=== PATIENT | female | born 1935 | race Caucasian/White ===

== ENCOUNTER 2020-12-03 09:28 | Inpatient (IN) | payer MEDICARE ==
[~2020-12-03] VITALS: Ht 157.5 cm; Wt 60.4 kg
[~2020-12-03 09:28] MED LIST: ALPR0.25 PO; AMIO200T6 PO; APIX2.5T PO; FURO40TA4 PO; Hydrocodone/Acetaminophen PO; LISI-517 PO; LISI10TA16 PO; METO50TA6 PO; MULT-245 PO
--- NOTE | 2020-12-03 09:45 | PHYS DOC ---
Past Medical History Past Medical History: A-Fib Past Surgical History: No Surgical History Additional Past Surgical Histo: PER PT SHE HAD "ABDOMINAL SURGERY LONG TIME AGO" Smoking Status: Never Smoker Alcohol Use: None Drug Use: None General Adult HPI: HPI: Patient is a 84-year-old female presenting for nausea. Onset was approximately 3 days ago without any known inciting event, ingestion, recent sick contact or travel. Patient initially reports taking Pepto-Bismol for stomach cramping and diarrhea which she reports helped. P.o. intake makes worse. Patient denies any pain, just states she feels tired and at times lightheaded and dizzy. Timing of symptoms has been constant since onset. She has had no falls or trauma but does admit generalized weakness, lightheadedness and dizziness with changes of position, no vision changes, no chest pain, no ripping or tearing sensation in chest, no shortness of breath or cough, she reports generalized abdominal cramping that is waxed and waned accompanied with nausea, there has been no emesis, admits looser stools than usual. She has not had the COVID-19 vaccine. Reports she has been compliant with all medications most importantly Eliquis for her known atrial fibrillation. She took all medications today as scheduled. Per chart review, it appears patient also has heart failure reduced ejection fraction with EF 30% per JEAN MARIE with subsequent cardioversion performed 09/2019 Review of Systems: Review of Systems: Fourteen body systems of review of systems have been reviewed. See HPI for pertinent positives and negative responses, other engle all other systems are negative, non-pertinent or non-contributory Heart Score: C/O Chest Pain: No HEART Score for Chest Pain: HEART Score for Chest Pain Response (Comments) Value History Moderately Suspicious 1 ECG Nonspecific Repolarizatio 1 Age > 65 2 Risk Factors >3 Risk Factors or Hx CAD 2 Total 6 Risk Factors: Risk Factors: DM, Current or recent (<one month) smoker, HTN, HLP, family history of CAD, obesity. Risk Scores: Score 0 - 3: 2.5% MACE over next 6 weeks - Discharge Home Score 4 - 6: 20.3% MACE over next 6 weeks - Admit for Clinical Observation Score 7 - 10: 72.7% MACE over next 6 weeks - Early Invasive Strategies Current Medications: Current Medications Medications (Trade) Dose Ordered Sig/Isac Start Time Stop Time Status Last Admin Dose Admin Metoprolol Tartrate (Lopressor Vial) 5 mg 1X ONCE 12/03/20 10:30 12/03/20 10:31 DC Allergies: Allergies: Allergies Coded Allergies Type Severity Reaction Last Updated Verified I S O L A T I O N *CONTACT* Allergy Unknown 03/02/15 Yes No Known Medication Allergies Allergy Unknown 03/02/15 Yes Physical Exam: PE: Constitutional: Well developed, well nourished, no acute distress, non-toxic appearance. HENT: Normocephalic, atraumatic, bilateral external ears normal, oropharynx dry, no oral exudates, nose normal. Eyes: PERRLA, EOMI, conjunctiva normal, no discharge. Neck: Normal range of motion, no tenderness, supple, no stridor. Cardiovascular: Heart rate tachycardic with an irregular rhythm, no murmurs rubs or gallops Lungs & Thorax: Bilateral breath sounds clear to auscultation Abdomen: Bowel sounds normal, soft, no tenderness, no masses, no pulsatile masses. Nonsurgical abdomen, no peritoneal signs Skin: Warm, dry, no erythema, no rash. Back: No tenderness, no CVA tenderness. Extremities: No tenderness, no cyanosis, no clubbing, ROM intact, no edema. Neurologic: Alert and oriented X 3, cranial nerves II through XII intact, normal motor & sensory function, no focal deficits noted. NIHSS 0 Psychologic: Affect normal, judgement normal, mood normal. Current Patient Data: Labs: Laboratory Tests Test 12/03/20 09:55 12/03/20 10:15 White Blood Count 5.0 x10^3/uL Red Blood Count 3.74 x10^6/uL Hemoglobin 12.0 g/dL Hematocrit 35.7 % Mean Corpuscular Volume 95 fL Mean Corpuscular Hemoglobin 32 pg Mean Corpuscular Hemoglobin Concent 34 g/dL Red Cell Distribution Width 14.6 % Platelet Count 187 x10^3/uL Neutrophils (%) (Auto) 58 % Lymphocytes (%) (Auto) 34 % Monocytes (%) (Auto) 5 % Eosinophils (%) (Auto) 1 % Basophils (%) (Auto) 1 % Neutrophils # (Auto) 2.9 x10^3/uL Lymphocytes # (Auto) 1.7 x10^3/uL Monocytes # (Auto) 0.2 x10^3/uL Eosinophils # (Auto) 0.1 x10^3/uL Basophils # (Auto) 0.1 x10^3/uL Sodium Level 141 mmol/L Potassium Level 4.4 mmol/L Chloride Level 104 mmol/L Carbon Dioxide Level 26 mmol/L Anion Gap 11 Blood Urea Nitrogen 16 mg/dL Creatinine 1.0 mg/dL Estimated GFR (Cockcroft-Gault) 53.0 BUN/Creatinine Ratio 16 Glucose Level 95 mg/dL Calcium Level 9.2 mg/dL Total Bilirubin 0.4 mg/dL Aspartate Amino Transf (AST/SGOT) 18 U/L Alanine Aminotransferase (ALT/SGPT) 18 U/L Alkaline Phosphatase 71 U/L Creatine Kinase 28 U/L Troponin I Quantitative 0.031 ng/mL Total Protein 6.6 g/dL Albumin 3.5 g/dL Albumin/Globulin Ratio 1.1 Lipase 83 U/L Current Medications Medications (Trade) Dose Ordered Sig/Isac Route PRN Reason Start Time Stop Time Status Last Admin Dose Admin Metoprolol Tartrate (Lopressor Vial) 5 mg 1X ONCE IVP 12/03/20 10:00 12/03/20 10:01 DC 12/03/20 10:07 Metoprolol Tartrate (Lopressor Vial) 5 mg 1X ONCE IVP 12/03/20 10:30 12/03/20 10:31 DC Vital Signs: Vital Signs Date Time Temp Pulse Resp B/P (MAP) Pulse Ox O2 Delivery O2 Flow Rate FiO2 12/03/20 09:36 133 26 133/97 (109) 99 Room Air Vital Signs Date Time Temp Pulse Resp B/P (MAP) Pulse Ox O2 Delivery O2 Flow Rate FiO2 12/03/20 10:14 117 17 124/77 (93) 99 Room Air EKG: EKG: EKG ordered and interpreted by myself at 0950 hrs. is atrial fibrillation with RVR at 133, QTC 484 otherwise unremarkable intervals, left axis deviation, no STEMI Radiology/Procedures: Radiology/Procedures: EXAM: XR CHEST 1V 12/03/2020 10:10 AM CLINICAL INDICATION: Weakness COMPARISON: Chest radiograph 10/13/2019 TECHNIQUE: AP upright view of the chest FINDINGS: The heart is enlarged, unchanged. Lungs are well-expanded and clear. No consolidation, pleural effusion, or pneumothorax. There is no acute osseous abnormality. Mild scoliosis. IMPRESSION: Unchanged cardiomegaly. No acute cardiopulmonary abnormality. Electronically signed by: Tatianna Rayo MD (12/03/2020 10:38 AM) [id number] Course & Med Decision Making: Course & Med Decision Making Airway patent, breathing unremarkable, IV access and vitals obtained concerning for tachycardia and tachypnea HPI and physical exam and EKG obtained concerning for atrial fibrillation with RVR. Patient takes metoprolol at home and reports taking all medications today. 5 mg IV Lopressor administered Subsequent diagnostic work-up ordered that was grossly nonconcerning. Chart reviewed, appears patient has heart failure reduced ejection fraction with last EF 30% in September 2019. She was admitted at that time for similar HPI and underwent JEAN MARIE cardioversion Patient symptoms improved with ER intervention; however, patient still not optimally rate controlled and decision made to pursue admission. I contacted hospitalist and reviewed case at length, he agreed need for admission and accepted patient under his care I contacted physician office rep at hospitalist request and reviewed case, it was recommended I load with digoxin 500 mcg IV which was performed prior to admission to [facility] I updated patient and spouse at bedside on proposed hospital admission, they were amenable. Patient confirms she is full CODE STATUS prior to admission Critical Care Time This patient required critical care. Due to the fact that the patient required a significant amount of one on one physician - patient contact time, ordering and review of studies, arranging urgent treatment with development of a management plan, evaluation of patients response to treatment with frequent reassessments, and discussions with other providers this patient required 35 minutes of critical care time. Critical care time was indicated due to the inherent instability and/or potential for instability in this patient. The critical care time that is allocated to this patient is above and beyond any time spent on any other billable procedures performed on this patient. Dragon Disclaimer: Dragon Disclaimer: This electronic medical record was generated, in whole or in part, using a voice recognition dictation system. Departure Departure Impression: Primary Impression: Atrial fibrillation with RVR Disposition: ADMITTED INPATIENT Admitting Physician: Shahab Brar Condition: STABLE Referrals: ÁNGELA BANKS (PCP) BALWINDER VALLEJO DO Dec 03, 2020 09:45
[2020-12-03] MEDS ORDERED: METOPROLOL IV PUSH 5 MG/5 ML VIAL. IVP ONE ×2 (10:00→10:30)
[2020-12-03 10:16] LABS: BASO # 0.1 x10^3/uL (0.0-0.2); BASO % 1 % (0-3); EOS # 0.1 x10^3/uL (0.0-0.7); EOS % 1 % (0-3); HEMATOCRIT 35.7 % (36.0-47.0); LYMPH # 1.7 x10^3/uL (1.0-4.8); LYMPH % 34 % (24-48); MEAN CORPUSCULAR HEMOGLOBIN 32 pg (25-35); MEAN CORPUSCULAR HGB CONC 34 g/dL (31-37); MEAN CORPUSCULAR VOLUME 95 fL (79-100); MONO # 0.2 x10^3/uL (0.0-1.1); MONO % 5 % (0-9); NEUT # 2.9 x10^3/uL (1.8-7.7); NEUT % 58 % (31-73); PLATELET COUNT 187 x10^3/uL (140-400); RED BLOOD COUNT 3.74 x10^6/uL (3.50-5.40); RED CELL DISTRIBUTION WIDTH 14.6 % (11.5-14.5)
--- NOTE | 2020-12-03 10:30 | EKG ---
[facility] [address] [place] [address] Test Date: 2020-12-03 Test Time: 09:44:25 Pat Name: PARMINDER METZ Department: Room: Gender: F Post Doc Fellowship: : [id number] Requested By: BALWINDER VALLEJO Order Number: [id number] Reading MD: Dillan Carballo MD Measurements Intervals Branscomb Rate: 133 P: KS: QRS: -35 QRSD: 114 T: 55 QT: 324 QTc: 484 Interpretive Statements ATRIAL FIB./FLUTTER WITH RAPID VENTRICULAR RESPONSE LAD NON-SPECIFIC ST/T CHANGES Electronically Signed On 12-03-2020 20:27:52 CDT by Dillan Carballo MD
[2020-12-03 10:38] LABS: CALCIUM 9.2 mg/dL (8.5-10.1); POTASSIUM 4.4 mmol/L (3.5-5.1)
--- NOTE | 2020-12-03 10:40 | RAD ---
EXAM: XR CHEST 1V 12/03/2020 10:10 AM CLINICAL INDICATION: Weakness COMPARISON: Chest radiograph 10/13/2019 TECHNIQUE: AP upright view of the chest FINDINGS: The heart is enlarged, unchanged. Lungs are well-expanded and clear. No consolidation, ple ural effusion, or pneumothorax. There is no acute osseous abnormality. Mild scoliosis. IMPRESSION: Unchanged cardiomegaly. No acute cardiopulmonary abnormality. Electronically signed by: Tatianna Rayo MD (12/03/2020 10:38 AM) [id number]
[2020-12-03 10:44] LABS: ALBUMIN 3.5 g/dL (3.4-5.0); ALBUMIN/GLOBULIN RATIO 1.1 (1.0-1.7); TOTAL BILIRUBIN 0.4 mg/dL (0.2-1.0); TOTAL PROTEIN 6.6 g/dL (6.4-8.2)
[2020-12-03] MEDS ORDERED: ASPIRIN CHEWABLE 81 MG TABLET. PO ONE (11:00)
[2020-12-03] MEDS ORDERED: ACETAMINOPHEN 325 MG TABLET. PO PRN (11:15)
[2020-12-03] MEDS ORDERED: NITROGLYCERIN SUBLINGUAL 0.4 MG BOTTLE OF 25. SL PRN (11:15)
[2020-12-03] MEDS ORDERED: DIGOXIN IV 500 MCG/2 ML AMPUL. IV ONE (11:30)
[2020-12-03 14:05] VITALS: BP 131/92
[2020-12-03 19:37] VITALS: BP 126/71
--- NOTE | 2020-12-03 20:31 | PDOC2 ---
CARDIOLOGY CONSULT NOTE DATE OF SERVICE: DATE: 12/03/20 TIME: 20:28 CHIEF COMPLAINT: Nausea and fatigue HPI: Ms. Franklin is a 84-year-old woman who presented to the hospital in the setting of worsening nausea and fatigue over the last few days. She states she was in her usual state of health up until recently. She denies any chest pain. She has no syncope or palpitations. She reports compliance with her medications. She underwent a JEAN MARIE/cardioversion for cardiomyopathy and difficult to control atrial fibrillation approximately 1 year ago. She had a similar episode approximately 2 years ago. She was previously on amiodarone therapy. She has not had follow-up in the office for over a year. Currently she reports that she is feeling better. She is lying in her bed and not in any acute distress. She has had a poor appetite. PMHX: 1. 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 Paroxysmal atrial fibrillation with previous cardioversion 3. Hypertension SOCHX: Denies any alcohol, tobacco or illicit drug use. She lives at home with her FAMHX: Noncontributory CURRENT MEDS: Current Medications Medications (Trade) Dose Ordered Sig/Isac Route PRN Reason Start Time Stop Time Status Last Admin Dose Admin Metoprolol Tartrate (Lopressor Vial) 5 mg 1X ONCE IVP 12/03/20 10:00 12/03/20 10:01 DC 12/03/20 10:07 Aspirin (Aspirin Chewable) 324 mg 1X ONCE PO 12/03/20 11:00 12/03/20 11:01 DC 12/03/20 11:12 Digoxin (Lanoxin) 500 mcg 1X ONCE IV 12/03/20 11:30 12/03/20 11:31 DC 12/03/20 11:54 ALLERGIES: Allergies Coded Allergies Type Severity Reaction Last Updated Verified I S O L A T I O N *CONTACT* Allergy Unknown 03/02/15 Yes No Known Medication Allergies Allergy Unknown 03/02/15 Yes ROS: Negative for 10 out of 14 systems reviewed unless otherwise mentioned above in HPI PHYSICAL EXAM: Vital Signs/I&O: Vital Signs Date Time Temp Pulse Resp B/P (MAP) Pulse Ox O2 Delivery O2 Flow Rate FiO2 12/03/20 19:37 97.8 70 16 126/71 (89) 98 Room Air 97.8 Physical Exam: The patient appeared well nourished and normally developed. Head exam is unremarkable. No scleral icterus or corneal arcus noted. Neck is without jugular venous distension, thyromegaly, or carotid bruits. Carotid upstrokes are brisk bilaterally. Lungs are clear to auscultation and percussion. Cardiac exam reveals the PMI to be normally sized and situated. Rhythm is irregular. First and second heart sounds normal. No murmurs, rubs or gallops. Abdominal exam reveals normal bowel sounds, no masses, no organomegaly and no aortic enlargement. Extremities are nonedematous and both femoral and pedal pulses are normal. Msk: No traumua Neuro: No focal deficits DIAGNOSTIC TESTING: EKG demonstrates atrial fibrillation with a rapid ventricular response Telemetry is notable for better control heart rate about 84 but persistently in atrial fibrillation Labs are grossly unremarkable Chest x-ray is unremarkable ASSESSMENT: 1. Fatigue likely related to atrial fibrillation and rapid ventricular response 2. Hypertension 3. Cardiomyopathy PLAN: 1. We will plan for continued rate control at this time. 2. Check echocardiogram tomorrow and continue anticoagulation for now. 3. We will consider JEAN MARIE/cardioversion again but it is unclear how long the patient has been in atrial fibrillation. Review of [facility] records reveals that the patient has not followed up there in over 2 years. She has not been seen in our office for over 1 year. Continue rate control and we will consider cardioversion after discussion with her depending on how she feels with her rate being more controlled. MOSES THAKKAR MD Dec 03, 2020 20:31
[2020-12-03] MEDS: APIXABAN 2.5 MG TABLET. PO SCH (20:44)
[2020-12-03] MEDS: METOPROLOL TART IMMED RELEASE 50 MG TABLET. PO SCH (20:44)
[2020-12-03 22:43] VITALS: BP 152/75
[2020-12-04 02:56] VITALS: BP 150/78
--- NOTE | 2020-12-04 06:59 | NUR ---
IP: Pt's hx of vre was in 2014. No reoccurrence and flag has been removed. No isolation needed at this time.
[2020-12-04 07:00] VITALS: BP 141/83
[2020-12-04 07:21] LABS: BASO % 1 % (0-3); EOS # 0.1 x10^3/uL (0.0-0.7); EOS % 3 % (0-3); HEMATOCRIT 37.6 % (36.0-47.0); HEMOGLOBIN 12.4 g/dL (12.0-15.5); LYMPH # 1.2 x10^3/uL (1.0-4.8); LYMPH % 36 % (24-48); MEAN CORPUSCULAR HEMOGLOBIN 32 pg (25-35); MEAN CORPUSCULAR HGB CONC 33 g/dL (31-37); MEAN CORPUSCULAR VOLUME 96 fL (79-100); MONO # 0.2 x10^3/uL (0.0-1.1); MONO % 7 % (0-9); NEUT # 1.8 x10^3/uL (1.8-7.7); NEUT % 53 % (31-73); PLATELET COUNT 171 x10^3/uL (140-400); RED BLOOD COUNT 3.93 x10^6/uL (3.50-5.40); RED CELL DISTRIBUTION WIDTH 13.9 % (11.5-14.5); WHITE BLOOD COUNT 3.4 x10^3/uL (4.0-11.0)
[2020-12-04] MEDS: ACETAMINOPHEN 325 MG TABLET. PO PRN ×2 (07:31→13:36)
[2020-12-04] MEDS: APIXABAN 2.5 MG TABLET. PO SCH ×2 (07:32→20:47)
[2020-12-04] MEDS: METOPROLOL TART IMMED RELEASE 50 MG TABLET. PO SCH ×2 (07:32→20:47)
[2020-12-04 07:43] LABS: ALBUMIN 3.2 g/dL (3.4-5.0); ALBUMIN/GLOBULIN RATIO 0.9 (1.0-1.7); CALCIUM 8.9 mg/dL (8.5-10.1); CREATININE 0.9 mg/dL (0.6-1.0); GFR 59.8; MAGNESIUM 2.2 mg/dL (1.8-2.4); POTASSIUM 4.2 mmol/L (3.5-5.1); TOTAL BILIRUBIN 0.4 mg/dL (0.2-1.0); TOTAL PROTEIN 6.8 g/dL (6.4-8.2)
--- NOTE | 2020-12-04 08:50 | HP ---
ADMIT DATE: 12/03/2020 HISTORY OF PRESENT ILLNESS: The patient is an 84-year-old female patient who presented to the Emergency Room, complaining of nausea started about 3 days ago without any known inciting event, ingestion or recent sick contact or travel. She has been taking Pepto-Bismol for stomach cramping and diarrhea, which she reports that has helped, her p.o. intake make things worse. Denied any pain. She Just states that she feels tired and at times lightheaded and dizzy. Time of the symptom has been constant since onset. She has had no falls or trauma, but does admit to generalized weakness, lightheadedness and dizziness and change in position, no vision changes or chest pain. Did have some shortness of breath according to her. She is taking her medication as scheduled. Currently, she is known to have congestive heart failure with reduced ejection fraction of 30% per JEAN MARIE with subsequent cardioversion performed in 09/2019. She was evaluated in the Emergency Room and has had an EKG which showed that she was in atrial fibrillation with rapid ventricular response with a heart rate of 133 beats per minute. QT interval of 484, otherwise unremarkable intervals, left axis deviation, no STEMI. Her chest x-ray showed that the heart is enlarged and unchanged. Lungs are well expanded and clear. No consolidation, pleural effusion, or pneumothorax. There is no acute osseous abnormality and mild scoliosis. The patient was admitted with atrial fibrillation with rapid ventricular response. She was given IV metoprolol and digoxin and was admitted and continued on metoprolol as well as apixaban. PAST MEDICAL HISTORY: Significant for hypertension, atrial fibrillation and chronic systolic congestive heart failure. PAST SURGICAL HISTORY: Significant for hernia repair. ALLERGIES: No known drug allergies. FAMILY HISTORY: Unremarkable. SOCIAL HISTORY: She is and lives with her . She does not smoke, drink alcohol or recreational drugs. She has 2 sons and 1 daughter. ALLERGIES: She has no known drug allergies. MEDICATIONS: She is currently on the following medication: She is on apixaban 2.5 mg twice a day and metoprolol tartrate 50 mg twice a day. PHYSICAL EXAMINATION: GENERAL: On arrival to the Emergency Room, the patient was dyspneic, tachycardic. HEENT: There is no pallor, jaundice, cyanosis, or thyromegaly. No jugular venous distention. Mild bilateral lower limb edema. VITAL SIGNS: Her heart rate on arrival was 133, irregularly irregular, blood pressure is 133/97, temperature was 97.5, respiratory rate was 26 and oxygen saturation was 99%. HEAD, EYES, EARS, NOSE, AND THROAT: Normocephalic, atraumatic. NECK: Supple. HEART: Showed normal first and second heart sounds, no gallop, rub or murmur. CHEST: Shows central trachea, equal bilateral chest expansion, air entry, vesicular breath sounds. No crepitation or rhonchi. ABDOMEN: Scaphoid, soft, nontender. NEUROLOGIC: She is awake, alert, responding appropriately. All cranial nerves are intact. She moves extremities without difficulty. LABORATORY DATA: Her lab work showed a white cell count 5000, hemoglobin 12, hematocrit 36, MCV 95 and platelet count of 187,000. Her chemistry showed a serum sodium of 141, potassium 4.4, chloride 104, bicarbonate 26, anion gap of 11, BUN 16, creatinine 1, estimated GFR was 53 mL per minute. Her glucose was 95, calcium was 9.2. Total bilirubin, AST, ALT, alkaline phosphatase were normal. Total protein 6.6, albumin was 3.5, serum lipase was 83. ASSESSMENT AND PLAN: Apparently, the patient was treated with digoxin and metoprolol IV twice in the Emergency Room, was admitted and continued on her apixaban and metoprolol. The cardiology team was consulted for further evaluation and treatment. REJI DR: Woo TID: [id number]
--- NOTE | 2020-12-04 09:27 | PN ---
DATE: 12/04/2020 SUBJECTIVE: The patient is resting, slightly propped up in bed, in no apparent respiratory distress. She is awake, alert. On questioning her, she denied any complaint, in particular denied any nausea or vomiting. Denied any dizziness, lightheadedness or vertigo. She did have one loose bowel movement this morning. PHYSICAL EXAMINATION: GENERAL: When I examined her, she looked well and was clearly in no apparent respiratory distress. No pallor, jaundice, cyanosis, or thyromegaly. No jugular venous distention. No lower limb edema. VITAL SIGNS: Her heart rate was 95, blood pressure was 150/78, temperature was 97.6, respiratory rate was 16 and oxygen saturation was 97% on room air. HEAD, EYES, EARS, NOSE, AND THROAT: Normocephalic, atraumatic. NECK: Supple. HEART: Normal first and second heart sounds. No gallop, rub or murmur. CHEST: Clear to auscultation. No crepitation or rhonchi. ABDOMEN: Distended, soft, nontender. NEUROLOGIC: She was grossly intact. Her intake over the last 24 hours and output incompletely recorded. LABORATORY DATA: Her lab work this morning showed a white cell count 3400, hemoglobin 12, hematocrit 37, MCV 96 and platelet count of 171,000. Serum sodium was 142, potassium 4.2, chloride 106, bicarbonate 29, anion gap of 7, BUN 14, creatinine 0.9. Estimated GFR was 59 mL per minute. Her glucose was 89, calcium was 8.9, magnesium was 2.2. Total bilirubin, AST, ALT, alkaline phosphatase were normal. Total protein 6.8, albumin 3.2. 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 JUAN C DR: Woo TID: [id number]
[2020-12-04] MEDS ORDERED: ANTI-COAG MONITOR BY PHARMACY. MC PRN (09:45)
[2020-12-04 11:00] VITALS: BP 113/76
[2020-12-04] MEDS: ONDANSETRON PF 4 MG/2 ML VIAL. IVP PRN (13:01)
--- NOTE | 2020-12-04 13:11 | PDOC ---
BILLY STEVEN [employer] 12/04/20 1311: CARDIO Progress Notes Date and Time Date of Service 12/04/20 Time of Evaluation 1300 Subjective Subjective: No Chest Pain, No shortness of breath, No Palpitations, Other (c/o nausea and abdominal pain) Vitals Vitals Vital Signs Date Time Temp Pulse Resp B/P (MAP) Pulse Ox O2 Delivery O2 Flow Rate FiO2 12/04/20 11:00 97.4 74 18 113/76 (88) 97 Room Air 97.4 Weight Weight [ ] Input and Output Intake and Output Intake and Output 12/04/20 07:00 Intake Total 480 ml Output Total 0 ml Balance 480 ml Intake Oral 480 ml Output Urine Total 0 ml Laboratory Labs Laboratory Tests Test 12/04/20 06:50 White Blood Count 3.4 x10^3/uL (4.0-11.0) Red Blood Count 3.93 x10^6/uL (3.50-5.40) Hemoglobin 12.4 g/dL (12.0-15.5) Hematocrit 37.6 % (36.0-47.0) Mean Corpuscular Volume 96 fL (79-100) Mean Corpuscular Hemoglobin 32 pg (25-35) Mean Corpuscular Hemoglobin Concent 33 g/dL (31-37) Red Cell Distribution Width 13.9 % (11.5-14.5) Platelet Count 171 x10^3/uL (140-400) Neutrophils (%) (Auto) 53 % (31-73) Lymphocytes (%) (Auto) 36 % (24-48) Monocytes (%) (Auto) 7 % (0-9) Eosinophils (%) (Auto) 3 % (0-3) Basophils (%) (Auto) 1 % (0-3) Neutrophils # (Auto) 1.8 x10^3/uL (1.8-7.7) Lymphocytes # (Auto) 1.2 x10^3/uL (1.0-4.8) Monocytes # (Auto) 0.2 x10^3/uL (0.0-1.1) Eosinophils # (Auto) 0.1 x10^3/uL (0.0-0.7) Basophils # (Auto) 0.0 x10^3/uL (0.0-0.2) Sodium Level 142 mmol/L (136-145) Potassium Level 4.2 mmol/L (3.5-5.1) Chloride Level 106 mmol/L (98-107) Carbon Dioxide Level 29 mmol/L (21-32) Anion Gap 7 (6-14) Blood Urea Nitrogen 14 mg/dL (7-20) Creatinine 0.9 mg/dL (0.6-1.0) Estimated GFR (Cockcroft-Gault) 59.8 BUN/Creatinine Ratio 16 (6-20) Glucose Level 89 mg/dL (70-99) Calcium Level 8.9 mg/dL (8.5-10.1) Magnesium Level 2.2 mg/dL (1.8-2.4) Total Bilirubin 0.4 mg/dL (0.2-1.0) Aspartate Amino Transf (AST/SGOT) 16 U/L (15-37) Alanine Aminotransferase (ALT/SGPT) 13 U/L (14-59) Alkaline Phosphatase 66 U/L (46-116) Total Protein 6.8 g/dL (6.4-8.2) Albumin 3.2 g/dL (3.4-5.0) Albumin/Globulin Ratio 0.9 (1.0-1.7) Physical Exam HEENT: Neck Supple W Full Motion Chest: Symmetric LUNGS: Clear to Auscultation Heart: irregularly irregular (AFIB, rate controlled ) Abdomen: Other (mild tenderness) Extremities: No Edema Neurology: alert, oriented, follow commands Assessment Assessment 1. PAFIB with RVR; remains in AFIB, rate now controlled. Fatigue, palpitations resolved. 2. Hypertension; controlled 3. Chronic systolic CHF, cardiomyopathy; Echo 08/16 with LVEF 25%. MPI at that time did not show any evidence of ischemia. Echo 10/18 with LVEF 30%. 4. Nausea, abdominal pain; CT abdomen/pelvis today Recommendations Echo today Continue metoprolol for rate control Eliquis for stroke prophylaxis Consider resumption of antiarrhythmic therapy and outpatient cardioversion Justicifation of Admission Dx: Justifications for Admission: Justification of Admission Dx: Yes Comments: AFIB with RVR MOSES THAKKAR MD 12/04/20 8176: CARDIO Progress Notes Plan Plan The patient was seen and interviewed as well as examined at the bedside. The chart was reviewed. The case was discussed. Agree with the plan of care. BILLY STEVEN APRN Dec 04, 2020 13:11 MOSES THAKKAR MD Dec 04, 2020 18:06
[2020-12-04] MEDS: LOPERAMIDE 2 MG CAPSULE PO PRN ×2 (13:45→15:18)
--- NOTE | 2020-12-04 14:43 | NUR ---
SS following for discharge planning. SS reviewed pt chart and discussed with pt RN. Pt is from home with spouse and is currently on room air. Cardiology following. Pt having diarrhea today. Abdominal CT ordered. SS will continue to follow for discharge planning.
[2020-12-04 15:00] VITALS: BP 128/79
--- NOTE | 2020-12-04 17:02 | RAD ---
Axial noncontrast CT imaging of the abdomen and pelvis was obtained. Coronal and sagittal reformats a re available. INDICATION: Abdominal pain. COMPARISON: 10/17/2019. FINDINGS: The heart is enlarged. There is a large hiatal hernia identified. There is also a fat filled [place] k hernia in the right lung base. Limited evaluation of solid organs without intravenous contrast. Gallbladder is contracted. The nonco ntrasted liver, spleen, adrenals are unremarkable in appearance. Pancreas is grossly unremarkable non contrast examination. Partial herniation of the right kidney into the Boch[place] hernia. No hydronephr osis or hydroureter is identified. The stomach, small and large bowel are nondistended. There are multiple impacted diverticula seen thr oughout the colon. No free air-fluid. Abdominal aorta is densely calcified without aneurysmal dilatio n. There are degenerated calcified fibroids in the uterus. Urinary bladder is moderately distended. There is moderate degenerative change the bony structures. IMPRESSION: 1. Large hiatal hernia. 2. 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 3. Pancolonic diverticulosis without diverticulitis. Exposure: One or more of the following individualized dose reduction techniques were utilized for thi s examination: 1. Automated exposure control 2. Adjustment of the mA and/or kV according to patient size 3. Use of iterative reconstruction technique Electronically signed by: Wicho Webb MD (12/04/2020 5:00 PM) [facility]
--- NOTE | 2020-12-04 17:06 | CARD ---
MR#: [id number] Date of Study: 12/04/2020 Ordering Physician: BILLY STEVEN, Referring Physician: BILLY STEVEN, Tech: Vasu Acosta [facility] APPROVED REPORT EXAM: Two-dimensional and M-mode echocardiogram with Doppler and color Doppler. Other Information Quality : GoodHR: 96bpm Rhythm : Atrial Fibrillation INDICATION Atrial Fibrillation 2D DIMENSIONS Left Atrium(2D)4.5 (1.6-4.0cm)IVSd1.2 (0.7-1.1cm) Aortic Root(2D)3.2 (2.0-3.7cm)LVDd4.8 (3.9-5.9cm) LVOT Diameter1.8 (1.8-2.4cm)PWd1.2 (0.7-1.1cm) LVDs3.8 (2.5-4.0cm)FS (%) 19.9 % SV43.0 mlLVEF(%)40.8 (>50%) Aortic Valve AoV Peak Cristian.131.0cm/sAoV VTI21.5cm AO Peak GR.6.9mmHgLVOT Peak Cristian.62.4cm/s AO Mean GR.3mmHgAVA (VMAX)1.24cm2 AI P 1/2 [id number] Mitral Valve MV E Peak Gr.3mmHgMV E Mean Gr.2mmHg Pulmonary Valve PV Peak Hepbpgov70.7cm/s Tricuspid Valve TR P. [id number]/sTR Peak Gr.28mmHg LEFT VENTRICLE The left ventricle is normal size. There is borderline concentric left ventricular hypertrophy. The l eft ventricular systolic function is normal and the ejection fraction is within normal range. EF 55% There is normal LV segmental wall motion. Tissue Doppler imaging reveals moderate left ventricular di astolic dysfunction. RIGHT VENTRICLE The right ventricle is normal size. There is normal right ventricular wall thickness. The right ventr icular systolic function is normal. ATRIA The left atrium is severely dilated. The right atrium size is normal. Interatrial septum is anuerysma l and bowed to the right. AORTIC VALVE The aortic valve is normal in structure and function. Doppler and Color Flow revealed mild aortic reg urgitation. There is no significant aortic valvular stenosis. There is no aortic valvular vegetation. MITRAL VALVE The mitral valve is normal in structure and function. There is no evidence of mitral valve prolapse. There is no mitral valve stenosis. Doppler and Color-flow revealed mild mitral regurgitation. TRICUSPID VALVE The tricuspid valve is normal in structure and function. Doppler and Color Flow revealed trace to mil d tricuspid regurgitation. There is no tricuspid valve prolapse or vegetation. There is no tricuspid valve stenosis. PULMONIC VALVE Doppler and Color Flow revealed no pulmonic valvular regurgitation. There is no pulmonic valvular jaya nosis. GREAT VESSELS The aortic root is normal in size. The ascending aorta is normal in size. IVC is mildly dilated wiith blunted inspirational response. PERICARDIAL EFFUSION There is no pleural effusion. There is no evidence of significant pericardial effusion. Critical Notification Critical Value: No <Conclusion> The left ventricular systolic function is normal and the ejection fraction is within normal range. EF 55% There is normal LV segmental wall motion. The left atrium is severely dilated. 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 Signed by : Dillan Carballo, Electronically Approved : 12/04/2020 17:06:05
[2020-12-04 19:40] VITALS: BP 131/67
[2020-12-04 23:10] VITALS: BP 121/68
[2020-12-05] MEDS: LOPERAMIDE 2 MG CAPSULE PO PRN ×2 (00:25→07:40)
[2020-12-05] MEDS: ONDANSETRON PF 4 MG/2 ML VIAL. IVP PRN ×2 (00:25→07:39)
[2020-12-05 03:50] VITALS: BP 131/83
[2020-12-05 07:00] VITALS: BP 145/90
[2020-12-05] MEDS: APIXABAN 2.5 MG TABLET. PO SCH (07:39)
[2020-12-05] MEDS: METOPROLOL TART IMMED RELEASE 50 MG TABLET. PO SCH (07:42)
[2020-12-05] MEDS ORDERED: PANT40TA77 PO (08:19)
[2020-12-05] MEDS ORDERED: ONDA4TAB7 PO (08:19)
--- NOTE | 2020-12-05 09:42 | DS ---
DATE OF DISCHARGE: 12/05/2020 HOSPITAL COURSE: The patient is an 84-year-old female patient who was admitted with a complaint of generalized weakness. Denied any nausea, vomiting. Denied any dizziness or lightheadedness or vertigo. Did complain of some abdominal cramping and her heart rate remained stable. She was seen by the clinical team manager and had had an echocardiogram, which basically showed that her left ventricular systolic function is normal, ejection fraction was 55%. There is normal left ventricular segmental wall motion. Left atrium is severely dilated. 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 Her left ventricle is normal in size. There is borderline concentric left ventricular hypertrophy. The left ventricular systolic function is normal. Ejection fraction is 55% with normal left ventricular segmental wall motion. Tissue Doppler imaging revealed moderate left ventricular diastolic dysfunction. The patient was continued on her apixaban and metoprolol and as she remained stable, a decision was made to discharge her home. The plan is to continue with metoprolol for rate control, Eliquis for stroke prevention and apparently, she will be discharged for outpatient cardioversion. Her CT scan of the abdomen and pelvis showed that she has large hiatal hernia, fat filled Bochdalek hernia with a small herniation to the kidney into the hernia, which is stable. She has pancolonic diverticulosis without diverticulitis. PHYSICAL EXAMINATION: GENERAL: When I examined her this morning, she looked well and was clearly in no apparent respiratory distress. No pallor, jaundice, cyanosis or thyromegaly. No jugular venous distention. No lower limb edema. VITAL SIGNS: Her heart rate was 101, blood pressure was 145/90, temperature 97.7, respiratory rate was 18 and oxygen saturation was 97% on room air. HEAD, EYES, EARS, NOSE, AND THROAT: Normocephalic, atraumatic. NECK: Supple. HEART: Normal first and second heart sounds, no gallop, rub or murmur. CHEST: Clear to auscultation, no crepitation or rhonchi. ABDOMEN: Distended, soft, nontender. NEUROLOGIC: She is grossly intact. LABORATORY DATA: Her lab work showed a white cell count of 3400, hemoglobin 12, hematocrit 37, MCV 96 and platelet count of 171,000. Her chemistry showed a serum sodium 142, potassium 4.2, chloride 106, bicarbonate 29, anion gap of 7, BUN 14, creatinine 0.9. Estimated GFR was 59 mL per minute. Her glucose was 89, calcium was 8.9, magnesium was 2.2. Total bilirubin, AST, ALT, alkaline phosphatase were normal. Total protein 6.8, albumin 3.2. TSH was 3.665. DISCHARGE MEDICATIONS: She will be discharged on metoprolol 50 mg twice a day, apixaban 2.5 mg twice a day, Protonix 40 mg once a day and ondansetron for Zofran 4 mg every 6 hours. FINAL DISCHARGE DIAGNOSES: 1. Paroxysmal atrial fibrillation with rapid ventricular response, rate controlled. 2. Hypertension, well controlled. 3. Chronic systolic congestive heart failure, ejection fraction on 08/16 was 25%. Today's ejection fraction was 55%. The patient has large hiatal hernia. DAYANARA/IRVIN DR: Woo TID: [id number]
--- NOTE | 2020-12-05 10:35 | NUR ---
SS following up with discharge planning. SS reviewed pt chart and discussed with pt RN. Pt is currently on room air. Discharge order on the chart for home with self care.
[2020-12-05 11:02] VITALS: BP 146/85
--- NOTE | 2020-12-05 12:34 | PDOC ---
CARDIO Progress Notes Date and Time Date of Service 12/05/20 Time of Evaluation 1230 Subjective Subjective: No Chest Pain, No shortness of breath, No Palpitations Vitals Vitals Vital Signs Date Time Temp Pulse Resp B/P (MAP) Pulse Ox O2 Delivery O2 Flow Rate FiO2 12/05/20 11:02 98.1 69 16 146/85 (105) 95 Room Air 98.1 Weight Weight [ ] Input and Output Intake and Output Intake and Output 12/05/20 07:00 Intake Total 750 ml Balance 750 ml Intake Oral 750 ml # Voids 5 # Bowel Movements 3 Physical Exam HEENT: Neck Supple W Full Motion Chest: Symmetric LUNGS: Clear to Auscultation Heart: irregularly irregular (AFIB, rate controlled ) Abdomen: Soft N/T Extremities: No Edema Neurology: alert, oriented, follow commands Assessment Assessment 1. PAFIB with RVR; remains in AFIB, rate controlled. Fatigue, palpitations resolved. 2. Hypertension; controlled 3. Chronic systolic CHF, cardiomyopathy; Echo 08/16 with LVEF 25%. MPI at that time did not show any evidence of ischemia. .Echo with preserved LV systolic function. The left atrium is severely dilated. 4. Nausea, abdominal pain; CT abdomen/pelvis with hiatal hernia and diverticulosis without diverticulitis. Recommendations Continue metoprolol for rate control Eliquis for stroke prophylaxis Consider resumption of antiarrhythmic therapy and outpatient cardioversion Follow up in our office with Dr. Carballo as scheduled Discussed importance of followup compliance Justicifation of Admission Dx: Justifications for Admission: Justification of Admission Dx: Yes BILLY STEVEN APRN Dec 05, 2020 12:34
--- NOTE | 2020-12-05 12:58 | NUR ---
Discharge Note: PARMINDER METZ Discharge instructions and discharge home medications reviewed with Patient and a copy given. All questions have been answered and understanding verbalized. The following instructions and handouts were given: Zofran, Protonix, Nausea, and abdominal pain Discontinued lines and drains: Peripheral IV intact. Patient discharged to Home or Self Care with Spouse via Wheelchair
== END 2020-12-05 12:50 | disposition home or self-care (01) | DRG 309 ==
LOC: ER 09:28 → 2 SOUTH 10:57
PROVIDERS: ADMIT Internal Medicine; ATTEND Internal Medicine
DX: I48.0 Paroxysmal atrial fibrillation (principal); I50.22 Chronic systolic (congestive) heart failure; I11.0 Hypertensive heart disease with heart failure; I42.8 Other cardiomyopathies; K44.9 Diaphragmatic hernia without obstruction or gangrene; K57.30 Diverticulosis of large intestine without perforation or abscess without bleeding; Z79.01 Long term (current) use of anticoagulants
CPT/HCPCS: 36415; 71045; 74176; 80053; 82550; 83690; 83735; 84443; 84484; 85025; 87493; 93005; 93306; 96374; 96375; J1160; J2405; J3490; 99291-25; G0378

== ENCOUNTER 2021-01-04 01:43 | Emergency (ER) | payer MEDICARE ==
[2020-12-25 10:50] VITALS: BP 110/74
[~2021-01-04 01:43] MED LIST changes: +CEPH500C PO; +ONDA4TAB7 PO; +PANT40TA77 PO
[2021-01-08] MEDS ORDERED: OSEL30CA PO (09:01)
== END 2021-01-04 03:03 | disposition left against medical advice (07) ==
LOC: ER 01:43
DX: R10.9 Unspecified abdominal pain (principal); Z53.21 Procedure and treatment not carried out due to patient leaving prior to being seen by health care provider

== ENCOUNTER 2021-01-07 06:14 | Inpatient (IN) | payer MEDICARE ==
[~2021-01-07] VITALS: Ht 157.5 cm; Wt 56.1 kg
--- NOTE | 2021-01-07 06:43 | PHYS DOC ---
Past Medical History Past Medical History: A-Fib Past Surgical History: Other Additional Past Surgical Histo: PER PT SHE HAD "ABDOMINAL SURGERY LONG TIME AGO" Smoking Status: Never Smoker Alcohol Use: None Drug Use: None General Adult EDM: Chief Complaint: SHORTNESS OF BREATH HPI: HPI: Patient is a 85 year old female presents with a chief complaint of shortness of breath. Patient states shortness of breath associated with fatigue nausea started yesterday. Since is progressively worse since onset. Patient shortness of breath is worse with exertion and laying flat. She denies any associated cough runny nose stuffy nose fevers or chills. On exam patient's heart rate noted to be greater than 100 and EKG confirms A. fib with RVR. Review of Systems: Review of Systems: Review of systems: Constitutional symptoms- No fever, no chills. Eyes- No Discharge, No Visual Loss Respiratory symptoms- Positive shortness of breath, No wheezing, Positive Dyspnea on Exertion Cardiovascular Systems; No chest pain, No Palpitations, No syncope Gastrointestinal symptoms: NO abdominal pain, no nausea, Positive vomiting no diarrhea. Genitourinary symptoms: No dysuria. Musculoskeletal symptoms: No back pain No extremity pain. NEUROLOGICAL Symptoms: No headache, Positive generalized weakness; No focal Weakness Skin: No rash. Heart Score: C/O Chest Pain: N/A Risk Factors: Risk Factors: DM, Current or recent (<one month) smoker, HTN, HLP, family history of CAD, obesity. Risk Scores: Score 0 - 3: 2.5% MACE over next 6 weeks - Discharge Home Score 4 - 6: 20.3% MACE over next 6 weeks - Admit for Clinical Observation Score 7 - 10: 72.7% MACE over next 6 weeks - Early Invasive Strategies Allergies: Allergies: Allergies Coded Allergies Type Severity Reaction Last Updated Verified No Known Medication Allergies Allergy Unknown 03/02/15 Yes Physical Exam: PE: General: alert, no acute distress. Skin: warm, dry and intact, no erythema, no rash. HENT: bilateral external ears normal, oropharynx moist, nose normal. Head:: Normocephalic, atraumatic. Neck: Trachea midline. Eyes: EOMI, Normal conjunctiva, No drainage CARDIOVASCULAR: Tachycardia, irregular rate and rhythm RESPIRATORY: No respiratory distress Back: Full range of motion. MUSCULOSKELETAL: Full range of motion of bilateral upper and lower extremities. GASTROINTESTINAL: Abdomen soft without rebound or guarding. NEUROLOGICAL: Alert and noted to person, place and time. No neurological deficits observed Psychiatric: Cooperative. Normal judgment EKG: EKG: Performed at 0633 Rate [address] elevation No ST depression No acute LA [] Radiology/Procedures: Radiology/Procedures: [] Impression: INDICATION: Reason: shortness of breath / Spl. Instructions: / History: COMPARISON: December 20, 2020 FINDINGS: Single view of chest obtained. Cardiomediastinal silhouette is enlarged with calcific atherosclerosis. Mild patchy opacities at the lung bases slightly decreased from prior IMPRESSION: * Slight decrease in airspace opacities at lung bases which could be from a telectasis or infiltrate. * Enlarged cardiac silhouette. Course & Med Decision Making: Course & Med Decision Making Pertinent Labs and Imaging studies reviewed. (See chart for details) [] Patient was evaluated for chief complaint. Work-up consisted of laboratory analysis radiologic imaging and EKG. Results reviewed and discussed with patient. Patient noted to have a troponin of 0.05, BNP greater than 15,000, EKG shows A. fib with rapid ventricular rate. Treatment included Cardizem bolus followed by a drip. Patient's heart rate improved to the 80s--A. fib rate controlled. Other treatment included Lasix 40 mg IV push. Patient's influenza resulted as positive she was dosed with Tamiflu. Patient was admitted Dr. Brar with cardiology consult. Alfonso Disclaimer: Alfonso Disclaimer: This electronic medical record was generated, in whole or in part, using a voice recognition dictation system. Departure Departure Impression: Primary Impression: Atrial fibrillation Additional Impressions: Dyspnea Influenza Elevated troponin Elevated brain natriuretic peptide (BNP) level Disposition: ADMITTED INPATIENT Condition: STABLE Referrals: MELECIO BRAR MD (PCP) JIHAN MALLORY DO Jan 07, 2021 06:43
--- NOTE | 2021-01-07 06:48 | EKG ---
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
[2021-01-07 07:02] LABS: BASO % 1 % (0-3); EOS # 0.1 x10^3/uL (0.0-0.7); EOS % 1 % (0-3); HEMATOCRIT 35.9 % (36.0-47.0); HEMOGLOBIN 11.7 g/dL (12.0-15.5); LYMPH # 1.4 x10^3/uL (1.0-4.8); LYMPH % 26 % (24-48); MEAN CORPUSCULAR HEMOGLOBIN 31 pg (25-35); MEAN CORPUSCULAR HGB CONC 33 g/dL (31-37); MEAN CORPUSCULAR VOLUME 95 fL (79-100); MONO # 0.3 x10^3/uL (0.0-1.1); MONO % 6 % (0-9); NEUT # 3.4 x10^3/uL (1.8-7.7); NEUT % 66 % (31-73); PLATELET COUNT 176 x10^3/uL (140-400); RED BLOOD COUNT 3.76 x10^6/uL (3.50-5.40); RED CELL DISTRIBUTION WIDTH 14.4 % (11.5-14.5); WHITE BLOOD COUNT 5.1 x10^3/uL (4.0-11.0)
--- NOTE | 2021-01-07 07:07 | RAD ---
INDICATION: Reason: shortness of breath / Spl. Instructions: / History: COMPARISON: December 20, 2020 FINDINGS: Single view of chest obtained. Cardiomediastinal silhouette is enlarged with calcific atherosclerosis. Mild patchy opacities at the lung bases slightly decreased from prior IMPRESSION: * Slight decrease in airspace opacities at lung bases which could be from atelectasis or infiltrate. * Enlarged cardiac silhouette. Electronically signed by: Antonio Belle MD (01/07/2021 7:04 AM) [id number]
[2021-01-07 07:14] LABS: CREATININE 0.9 mg/dL (0.6-1.0); GFR 59.7; POTASSIUM 4.1 mmol/L (3.5-5.1)
[2021-01-07 07:20] LABS: ALBUMIN 3.4 g/dL (3.4-5.0); ALBUMIN/GLOBULIN RATIO 0.8 (1.0-1.7); TOTAL BILIRUBIN 0.4 mg/dL (0.2-1.0); TOTAL PROTEIN 7.5 g/dL (6.4-8.2)
[2021-01-07] MEDS ORDERED: FUROSEMIDE 40 MG/4 ML VIAL. IVP ONE (07:45)
[2021-01-07 07:49] LABS: INFLUENZA A PATIENT NEGATIVE (NEGATIVE)
[2021-01-07 07:51] LABS: INFLUENZA B PATIENT POSITIVE (NEGATIVE)
[2021-01-07] MEDS ORDERED: OSELTAMIVIR 75 MG CAPSULE PO SCH (09:00)
[2021-01-07] MEDS: OSELTAMIVIR 30 MG CAPSULE PO SCH ×2 (09:20→20:57)
--- NOTE | 2021-01-07 12:20 | PDOC2 ---
BILLY STEVEN [employer] 01/07/21 1220: CARDIAC CONSULT DATE OF CONSULT Date of Consult DATE: 01/07/21 TIME: 12:15 REASON FOR CONSULT Reason for Consult: AFIB with RVR REFERRING PHYSICIAN Referring Physician: Dr. Heath SOURCE Source: Chart review, Patient HISTORY OF PRESENT ILLNESS HISTORY OF PRESENT ILLNESS This is an 85 yo female who presented secondary to shortness of breath. Was noted in AFIB with RVR, which prompted this consult. HR now controlled on Cardizem gtt. Reports having "flu" over the weekend. Has some nausea with episodes of vomiting. Then developed some shortness of breath. No dizziness, diaphoresis, or chest pain. Reports compliance with medications. Has a known history of AFIB and is on OAC. PAST MEDICAL HISTORY Cardiovascular: AFIB, CHF, HTN GI: GERD, Other (chronic nasuea/abdominal pain) PAST SURGICAL HISTORY Past Surgical History: No pertinent history FAMILY HISTORY Family History: Other (noncontributory ) SOCIAL HISTORY Social History Smoke: No ALCOHOL: none Drugs: None Lives: with Family CURRENT MEDICATIONS CURRENT MEDICATIONS Current Medications Medications (Trade) Dose Ordered Sig/Isac Route PRN Reason Start Time Stop Time Status Last Admin Dose Admin Diltiazem HCl (Cardizem Iv Push) 10 mg 1X ONCE IVP 01/07/21 07:00 01/07/21 07:01 DC 01/07/21 07:21 Diltiazem HCl 125 mg/Sodium Chloride 125 ml @ 5 mls/hr CONT PRN IV SEE I/O RECORD 01/07/21 07:00 01/07/21 07:23 Furosemide (Lasix) 40 mg 1X ONCE IVP 01/07/21 07:45 01/07/21 07:47 DC 01/07/21 09:21 Oseltamivir Phosphate (Tamiflu) 30 mg BID PO 01/07/21 09:00 01/12/21 08:59 01/07/21 09:20 ALLERGIES ALLERGIES: Coded Allergies: No Known Medication Allergies (Verified Allergy, Unknown, 03/02/15) ROS Review of System 14 point ROS conducted with pertinent positives noted above in HPI PHYSICAL EXAM PHYSICAL EXAM General: Alert, Oriented X3, Cooperative, No acute distress HEENT: Atraumatic Lungs: Clear to auscultation, Other (diminished bases) Heart: Other (IRRR; tele AFIB. rate controlled ) Abdomen: Other (tenderness ) Extremities: Other (1+ bilateral LE edema ) Skin: No significant lesion Neuro: Normal speech, Sensation intact Psych/Mental Status: Mental status NL, Mood NL MUSCULOSKELETAL: Osteoarthritic changes both hands VITALS/I&O VITALS/I&O: Vital Signs Date Time Temp Pulse Resp B/P (MAP) Pulse Ox O2 Delivery O2 Flow Rate FiO2 01/07/21 09:27 78 16 131/93 (106) 96 01/07/21 06:24 97.7 Room Air 97.7 LABS Lab: Laboratory Tests Test 01/07/21 06:40 01/07/21 06:48 Influenza Type A Antigen Negative (NEGATIVE) Influenza Type B Antigen Positive (NEGATIVE) SARS-CoV-2 Antigen (Rapid) Negative (NEGATIVE) White Blood Count 5.1 x10^3/uL (4.0-11.0) Red Blood Count 3.76 x10^6/uL (3.50-5.40) Hemoglobin 11.7 g/dL (12.0-15.5) L Hematocrit 35.9 % (36.0-47.0) L Mean Corpuscular Volume 95 fL (79-100) Mean Corpuscular Hemoglobin 31 pg (25-35) Mean Corpuscular Hemoglobin Concent 33 g/dL (31-37) Red Cell Distribution Width 14.4 % (11.5-14.5) Platelet Count 176 x10^3/uL (140-400) Neutrophils (%) (Auto) 66 % (31-73) Lymphocytes (%) (Auto) 26 % (24-48) Monocytes (%) (Auto) 6 % (0-9) Eosinophils (%) (Auto) 1 % (0-3) Basophils (%) (Auto) 1 % (0-3) Neutrophils # (Auto) 3.4 x10^3/uL (1.8-7.7) Lymphocytes # (Auto) 1.4 x10^3/uL (1.0-4.8) Monocytes # (Auto) 0.3 x10^3/uL (0.0-1.1) Eosinophils # (Auto) 0.1 x10^3/uL (0.0-0.7) Basophils # (Auto) 0.0 x10^3/uL (0.0-0.2) Sodium Level 136 mmol/L (136-145) Potassium Level 4.1 mmol/L (3.5-5.1) Chloride Level 102 mmol/L (98-107) Carbon Dioxide Level 23 mmol/L (21-32) Anion Gap 11 (6-14) Blood Urea Nitrogen 9 mg/dL (7-20) Creatinine 0.9 mg/dL (0.6-1.0) Estimated GFR (Cockcroft-Gault) 59.7 BUN/Creatinine Ratio 10 (6-20) Glucose Level 95 mg/dL (70-99) Calcium Level 9.0 mg/dL (8.5-10.1) Total Bilirubin 0.4 mg/dL (0.2-1.0) Aspartate Amino Transferase (AST) 28 U/L (15-37) Alanine Aminotransferase (ALT) 22 U/L (14-59) Alkaline Phosphatase 68 U/L (46-116) Troponin I Quantitative 0.059 ng/mL (0.000-0.055) XV-Spv-V-Type Natriuretic Peptide 46654 pg/mL (0-449) H Total Protein 7.5 g/dL (6.4-8.2) Albumin 3.4 g/dL (3.4-5.0) Albumin/Globulin Ratio 0.8 (1.0-1.7) L Laboratory Tests 01/07/21 06:48 Laboratory Tests 01/07/21 06:48 ECHOCARDIOGRAM ECHOCARDIOGRAM <Conclusion> The left ventricular systolic function is normal and the ejection fraction is within normal range. EF 55% There is normal LV segmental wall motion. The left atrium is severely dilated. 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 DATE: 12/04/20 [id number] ASSESSMENT/PLAN ASSESSMENT/PLAN 1. Dyspnea with acute on chronic diastolic CHF; s/p IV Lasix. appears compensated 2. PAFIB presenting with RVR; Rate now controlled on Cardizem gtt 3. Mild troponin elevation; initial 0.059. Most probably type II, demand ischemia. Is CP free. 4. Hypertension; controlled 5. H/o cardiomyopathy; Echo 08/16 with LVEF 25%. MPI at that time did not show any evidence of ischemia. Echo 12/19 with LV recovery with EF 55% 6. Influenza B +; Tamiflu initiated Recommendations Trend troponin Resume metoprolol for rate control Titrate off Cardizem Eliquis for stroke prophylaxis Consider outpatient cardioversion Supportive care SAMIRA FLORES MD 01/07/21 1724: CARDIAC CONSULT ASSESSMENT/PLAN ASSESSMENT/PLAN Patient seen and examined. Agree with TIE HACKER's assessment and plan. Continue diuresis for acute on chronic diastolic heart failure. PAF presenting with atrial fibrillation with RVR. Heart rate better controlled since admission. Titrate Cardizem drip off and resume metoprolol for rate control. Continue Eliquis for stroke prophylaxis and plan for outpatient cardioversion. Slight troponin elevation probably demand ischemia. Recent 2D echo showed normalized left ventricle systolic function with EF 55%. We will consider outpatient ischemic evaluation. Thank you for your consultation. BILLY STEVEN APRN Jan 07, 2021 12:20 SAMIRA FLORES MD Jan 07, 2021 17:24
[2021-01-07 14:57] VITALS: BP 124/77
[2021-01-07] MEDS ORDERED: ALPR0.254 PO (15:19)
[2021-01-07] MEDS ORDERED: ALPRAZolam 0.25 MG TABLET PO PRN (18:00)
--- NOTE | 2021-01-07 18:04 | PDOC ---
Provider Note Date of Service: DATE: 01/07/21 TIME: 18:03 Provider Note Pt seen in ER this morning .H&P dictated.#[id number]. Justifications for Admission Other Justification MELECIO HINKLE MD Jan 07, 2021 18:04
--- NOTE | 2021-01-07 19:07 | HP ---
ADMIT DATE: 01/07/2021 MEDICAL HISTORY AND PHYSICAL REASON FOR ADMISSION TO THE HOSPITAL: 1. Influenza B. 2. AFib with RVR. HISTORY OF PRESENT ILLNESS: The patient is an 85-year-old female. The patient was doing relatively well. She has some cough, fever, short of breath and came to the emergency room. She was in atrial fibrillation with RVR. COVID test was negative, but influenza B was positive. The patient was admitted to the hospital, given Cardizem drip for AFib with rate control, and started on Tamiflu. PAST MEDICAL HISTORY: She was recently in the hospital for abdominal pain. At that time, the patient was found to have asymptomatic gallbladder disease without any stones, distended gallbladder, did not require any surgery. She has a history of AFib, hypertension, CHF, and GERD. PAST SURGICAL HISTORY: None. FAMILY HISTORY: None. SOCIAL HISTORY: Denies smoking, alcohol or drug abuse. The patient lives with her . ALLERGIES: No known allergies. MEDICATIONS: The patient is on Eliquis 2.5 twice a day, metoprolol 75 mg twice a day, pantoprazole 40 mg daily. REVIEW OF SYMPTOMS: Has some low-grade fever, cough, short of breath. Rest of the 14-system was reviewed and negative. PHYSICAL EXAMINATION: GENERAL: The patient is seen in the emergency room. VITAL SIGNS: Temperature 97, pulse 128, respirations 24, blood pressure 148/104, 98 on room air. HEENT: Head is atraumatic. Pupils equal. Oral cavity, slight congestion, postnasal drip. NECK: Supple. Thyroid not enlarged. JVD not elevated. CHEST: Symmetrical. CARDIAC: S1, S2 regular. LUNGS: Clear to auscultation. ABDOMEN: Soft. No mass palpable. EXTERNAL GENITALIA: No [place]. RECTAL: Deferred. EXTREMITIES: No calf tenderness. No edema. NEUROLOGIC: Moving all extremities. No focal noted. LABORATORY DATA: Shows a white count of 5, hemoglobin 11.7, platelets 177. Electrolytes show sodium 136, potassium 4.1, chloride 102, bicarbonate 23, BUN 9, creatinine 0.9, glucose 95. LFTs normal. BNP 15,586. Troponin 0.059. COVID rapid test as an RNA test was negative. Influenza B test is positive. Chest x-ray, slight atelectasis, infiltrate in the lung. EKG, AFib with RVR. No ischemic changes. IMPRESSION: 1. Influenza B infection, ? lung infection. 2. Atrial fibrillation with rapid ventricular response. 3. History of diastolic dysfunction. She had an echocardiogram that shows ejection fraction 55%. PLAN: At this time, the patient was admitted to the hospital, was started on Cardizem drip for rate control. Started on Tamiflu for influenza B. Continue anticoagulation with Eliquis 2.5 b.i.d. and see how she improves in the next 24-48 hours. DUNIA/SINDY DR: Salvador TID: [id number] [facility]
[2021-01-07 19:55] VITALS: BP 128/84
[2021-01-07 20:00] VITALS: BP 136/94
[2021-01-07] MEDS: APIXABAN 2.5 MG TABLET. PO SCH (20:55)
[2021-01-07] MEDS: METOPROLOL TART IMMED RELEASE 50 MG TABLET. PO SCH (20:57)
[2021-01-07 21:00] VITALS: BP 118/87
[2021-01-07 22:00] VITALS: BP 156/72
[2021-01-07 23:15] VITALS: BP 156/72
[2021-01-08] VITALS (10 sets, daily range): BP systolic 108–151; BP diastolic 68–94
[2021-01-08 07:06] LABS: BASO % 1 % (0-3); EOS # 0.1 x10^3/uL (0.0-0.7); EOS % 2 % (0-3); HEMATOCRIT 35.2 % (36.0-47.0); HEMOGLOBIN 11.7 g/dL (12.0-15.5); LYMPH # 1.2 x10^3/uL (1.0-4.8); LYMPH % 33 % (24-48); MEAN CORPUSCULAR HEMOGLOBIN 32 pg (25-35); MEAN CORPUSCULAR HGB CONC 33 g/dL (31-37); MEAN CORPUSCULAR VOLUME 95 fL (79-100); MONO # 0.3 x10^3/uL (0.0-1.1); MONO % 7 % (0-9); NEUT # 1.9 x10^3/uL (1.8-7.7); NEUT % 56 % (31-73); PLATELET COUNT 155 x10^3/uL (140-400); RED BLOOD COUNT 3.71 x10^6/uL (3.50-5.40); RED CELL DISTRIBUTION WIDTH 14.7 % (11.5-14.5); WHITE BLOOD COUNT 3.5 x10^3/uL (4.0-11.0)
[2021-01-08 07:27] LABS: CALCIUM 9.1 mg/dL (8.5-10.1); CREATININE 0.9 mg/dL (0.6-1.0); GFR 59.7; POTASSIUM 3.4 mmol/L (3.5-5.1)
[2021-01-08] MEDS ORDERED: PANTOPRAZOLE 40 MG TABLET.DR. PO SCH (07:30)
--- NOTE | 2021-01-08 08:59 | PDOC ---
PROGRESS NOTES Date of Service: DATE: 01/08/21 TIME: 08:57 Subjective Subjective feels better want to go home Objective Objective Vital Signs Date Time Temp Pulse Resp B/P (MAP) Pulse Ox O2 Delivery O2 Flow Rate FiO2 01/08/21 07:16 97.2 83 16 108/79 (89) 91 Room Air 97.2 Intake and Output 01/08/21 07:00 Intake Total 612 ml Output Total 300 ml Balance 312 ml Intake Oral 500 ml IV Total 112 ml Output Urine Total 300 ml Physical Exam Abdomen: Soft Heart: Regular rate, Normal S1, Normal S2 Extremities: No clubbing General: Alert HEENT: Atraumatic Lungs: Clear to auscultation MUSCULOSKELETAL: No deformity, Osteoarthritic changes both hands Neck: No JVD Neuro: Normal gait Psych/Mental Status: Mental status NL Skin: No breakdown Diagnosis Problem List Problems Medical Problems: (1) Atrial fibrillation Status: Acute (2) Dyspnea Status: Acute (3) Elevated brain natriuretic peptide (BNP) level Status: Acute (4) Elevated troponin Status: Acute (5) Influenza Status: Acute Assessment Assessment Problems Medical Problems: (1) Atrial fibrillation Status: Acute (2) Dyspnea Status: Acute (3) Elevated brain natriuretic peptide (BNP) level Status: Acute (4) Elevated troponin Status: Acute (5) Influenza Status: Acute IMPRESSION: 1. Influenza B infection, ? lung infection. 2. Atrial fibrillation with rapid ventricular response. 3. History of diastolic dysfunction. She had an echocardiogram that shows ejection fraction 55%. PLAN: Tamiflu po bid hr less than 100 labs ok d/c home later today. At this time, the patient was admitted to the hospital, was started on Cardizem drip for rate control. Started on Tamiflu for influenza B. Continue anticoagulation with Eliquis 2.5 b.i.d. and see how she improves in the next 24-48 hours. Plan Plan of Care Problems Medical Problems: (1) Atrial fibrillation Status: Acute (2) Dyspnea Status: Acute (3) Elevated brain natriuretic peptide (BNP) level Status: Acute (4) Elevated troponin Status: Acute (5) Influenza Status: Acute Comment Review of Relevant I have reviewed the following items gal (where applicable) has been applied. Labs Laboratory Tests Test 01/07/21 12:40 01/07/21 16:00 01/08/21 06:30 Troponin I Quantitative 0.049 ng/mL (0.000-0.055) 0.069 ng/mL (0.000-0.055) White Blood Count 3.5 x10^3/uL (4.0-11.0) Red Blood Count 3.71 x10^6/uL (3.50-5.40) Hemoglobin 11.7 g/dL (12.0-15.5) Hematocrit 35.2 % (36.0-47.0) Mean Corpuscular Volume 95 fL (79-100) Mean Corpuscular Hemoglobin 32 pg (25-35) Mean Corpuscular Hemoglobin Concent 33 g/dL (31-37) Red Cell Distribution Width 14.7 % (11.5-14.5) Platelet Count 155 x10^3/uL (140-400) Neutrophils (%) (Auto) 56 % (31-73) Lymphocytes (%) (Auto) 33 % (24-48) Monocytes (%) (Auto) 7 % (0-9) Eosinophils (%) (Auto) 2 % (0-3) Basophils (%) (Auto) 1 % (0-3) Neutrophils # (Auto) 1.9 x10^3/uL (1.8-7.7) Lymphocytes # (Auto) 1.2 x10^3/uL (1.0-4.8) Monocytes # (Auto) 0.3 x10^3/uL (0.0-1.1) Eosinophils # (Auto) 0.1 x10^3/uL (0.0-0.7) Basophils # (Auto) 0.0 x10^3/uL (0.0-0.2) Sodium Level 139 mmol/L (136-145) Potassium Level 3.4 mmol/L (3.5-5.1) Chloride Level 103 mmol/L (98-107) Carbon Dioxide Level 28 mmol/L (21-32) Anion Gap 8 (6-14) Blood Urea Nitrogen 8 mg/dL (7-20) Creatinine 0.9 mg/dL (0.6-1.0) Estimated GFR (Cockcroft-Gault) 59.7 Glucose Level 96 mg/dL (70-99) Calcium Level 9.1 mg/dL (8.5-10.1) Medications Current Medications Alprazolam (Xanax) 0.25 mg PRN BID PRN PO ANXIETY / AGITATION Last administered on 01/07/21at 20:56; Start 01/07/21 at 18:00 Apixaban (Eliquis) 2.5 mg BID PO Last administered on 01/07/21at 20:55; Start 01/07/21 at 21:00 Metoprolol Tartrate (Lopressor) 75 mg BID PO Last administered on 01/07/21at 20:57; Start 01/07/21 at 21:00 Oseltamivir Phosphate (Tamiflu) 30 mg BID PO Last administered on 01/07/21at 20:57; Start 01/07/21 at 09:00; Stop 01/12/21 at 08:59 Oseltamivir Phosphate (Tamiflu) 75 mg BID PO ; Start 01/07/21 at 09:00; Stop 01/12/21 at 08:59; Status UNV Pantoprazole Sodium (Protonix) 40 mg DAILYAC PO ; Start 01/08/21 at 07:30 Vitals/I & O Vital Sign - Last 24 Hours 01/07/21 01/07/21 01/07/21 01/07/21 09:27 12:30 14:43 14:57 Pulse 78 111 111 92 Resp 16 18 18 16 B/P (MAP) 131/93 (106) 134/89 (104) 145/92 (109) 124/77 (93) Pulse Ox 96 97 98 96 O2 Delivery Room Air 01/07/21 01/07/21 01/07/21 01/07/21 15:00 15:00 19:55 20:00 Temp 97.6 97.6 Pulse 81 Resp 20 B/P (MAP) 128/84 (99) Pulse Ox 97 O2 Delivery Room Air Room Air Room Air Room Air 01/07/21 01/07/21 01/07/21 01/07/21 20:00 20:57 21:00 22:00 Pulse 110 81 95 86 B/P (MAP) 136/94 (108) 128/84 118/87 (97) 156/72 (100) Pulse Ox 95 95 95 O2 Delivery Room Air Room Air 01/07/21 01/08/21 01/08/21 01/08/21 23:15 00:00 01:00 02:00 Temp 97.5 97.5 Pulse 104 86 88 100 Resp 20 B/P (MAP) 156/72 (100) 134/76 (95) 134/75 (94) 151/91 (111) Pulse Ox 98 94 93 96 O2 Delivery Room Air Room Air Room Air Room Air 01/08/21 01/08/21 01/08/21 01/08/21 03:00 03:25 04:00 05:00 Temp 97.7 97.7 Pulse 90 74 82 Resp 18 B/P (MAP) 135/83 (100) 151/91 (111) 139/94 (109) 113/68 (83) Pulse Ox 98 92 91 93 O2 Delivery Room Air Room Air Room Air 01/08/21 07:16 Temp 97.2 97.2 Pulse 83 Resp 16 B/P (MAP) 108/79 (89) Pulse Ox 91 O2 Delivery Room Air Intake and Output 01/07/21 01/07/21 01/08/21 15:00 23:00 07:00 Intake Total 400 ml 212 ml Output Total 100 ml 200 ml Balance 300 ml 12 ml Justifications for Admission Other Justification MELECIO HINKLE MD Jan 08, 2021 08:59
[2021-01-08] MEDS: METOPROLOL TART IMMED RELEASE 50 MG TABLET. PO SCH (09:00)
--- NOTE | 2021-01-08 09:00 | NUR ---
IP: Pt is influenza B + requiring droplet precautions x 5 days and 24 hours without a fever, whichever is longest.
[2021-01-08] MEDS ORDERED: OSEL30CA PO (09:01)
--- NOTE | 2021-01-08 09:03 | SNU/HH DC ---
DISCHARGE WITH HOME HEALTH DISCHARGE INFORMATION: Discharge Date: Jan 08, 2021 Final Diagnosis: Problems Medical Problems: (1) Atrial fibrillation Status: Acute (2) Dyspnea Status: Acute (3) Elevated brain natriuretic peptide (BNP) level Status: Acute (4) Elevated troponin Status: Acute (5) Influenza Status: Acute Condition on Discharge: Stable CODE STATUS: Code Status: Other (flu) HOME HEALTH: Face to Face: I certify this patient is under my care and that I, or a nurse practitioner or physician's preschool assistant director working with me, had a face to face encounter that meets the physician face to face encounter requirements with this patient on []. RN For Eval/Treatment: Yes Physical Therapy For: Evalulation/Treatment Home Health Aide For: Self-care SPECIAL SERVICES DIRECTOR For: Community Resources Pt Meets Homebound Status: Poor coordination w/ amb. POST DISCHARGE ORDERS: Activity Instructions for Disc: Activity as tolerated Weight Bearing Status after Di: As tolerated Bathing Instructions: No Tub Bath until see DIET AFTER DISCHARGE: Low Sodium 2 gm Wound/Incision Care: May get incision wet CHECKS AFTER DISCHARGE: Checks after discharge: Check blood press - daily, Check your Temp as needed, Weigh Yourself Daily TREATMENT/EQUIPMENT ORDERS: Adaptive Equipment Issued: None CERTIFICATION STATEMENT: Certification Statement: Certification Statement: Based on the above finding, I certify that this patient is confined to the home and needs intermittent shelter care, physical therapy and/or speech therapy, or continues to need occupational therapy.~ This patient is under my care, and I have initiated the establishment of the plan of care.~ This patient will be followed by myself or a community physician who will periodically review the plan of care. Home Meds Active Scripts Oseltamivir Phosphate (TAMIFLU) 30 Mg Capsule, 30 MG PO BID for flu for 3 Days, #6 CAP Prov:MELECIO HINKLE MD 01/08/21 Metoprolol Tartrate (METOPROLOL TARTRATE) 50 Mg Tablet, 75 MG PO BID for FOR HYPERTENSION for 30 Days, #90 TAB 3 Refills Prov:NINFA MCKNIGHT APRN 12/25/20 Pantoprazole Sodium (PROTONIX ) 40 Mg Tablet.dr 40 MG PO DAILYAC for GERD for 30 Days, #30 TAB 5 Refills Prov:ÁNGELA WHITLOCK MD 12/05/20 Reported Medications Alprazolam (ALPRAZOLAM) 0.25 Mg Tablet, 0.25 MG PO BID PRN for ANXIETY / AGITATION, TAB 0 Refills 01/07/21 Apixaban (ELIQUIS) 2.5 Mg Tablet, 2.5 MG PO BID for afib, TAB 10/16/19 MELECIO HINKLE MD Jan 08, 2021 09:03
[2021-01-08] MEDS: OSELTAMIVIR 30 MG CAPSULE PO SCH (09:06)
[2021-01-08 09:12] LABS: PLT ESTIMATE ADEQUATE (ADEQUATE)
[2021-01-08] MEDS ORDERED: POTASSIUM CHLORIDE 20 MEQ TABLET.ER. PO ONE (09:15)
[2021-01-08] MEDS: APIXABAN 2.5 MG TABLET. PO SCH (10:18)
--- NOTE | 2021-01-08 14:17 | NUR ---
SS following for discharge planning. SS reviewed pt chart and discussed with pt RN. Pt is from home with significant other and is currently on room air. Flu B positive. Discharge orders received for home with home healthcare. SS met with pt to discuss discharge planning and home healthcare services. Pt agreeable to home healthcare with no preference of company. Referral and discharge orders sent to [facility], ; fax [phone]. Pt concerned with cost of [place] Flu. Per [facility], pt's [place] Flu will cost $22.62 with Good [facility]. Pt's RN notified.
--- NOTE | 2021-01-08 15:06 | PDOC ---
BILLY STEVEN CIVIL CELEBRANT 01/08/21 1506: CARDIO Progress Notes Date and Time Date of Service 01/08/21 Time of Evaluation 1210 Subjective Subjective: No Chest Pain, No shortness of breath, No Palpitations Vitals Vitals Vital Signs Date Time Temp Pulse Resp B/P (MAP) Pulse Ox O2 Delivery O2 Flow Rate FiO2 01/08/21 11:00 97.9 62 18 117/75 (89) 95 Room Air 97.9 Weight Weight [ ] Input and Output Intake and Output Intake and Output 01/08/21 07:00 Intake Total 612 ml Output Total 300 ml Balance 312 ml Intake Oral 500 ml IV Total 112 ml Output Urine Total 300 ml Laboratory Labs Laboratory Tests Test 01/07/21 16:00 01/08/21 06:30 Troponin I Quantitative 0.069 ng/mL (0.000-0.055) White Blood Count 3.5 x10^3/uL (4.0-11.0) Red Blood Count 3.71 x10^6/uL (3.50-5.40) Hemoglobin 11.7 g/dL (12.0-15.5) Hematocrit 35.2 % (36.0-47.0) Mean Corpuscular Volume 95 fL (79-100) Mean Corpuscular Hemoglobin 32 pg (25-35) Mean Corpuscular Hemoglobin Concent 33 g/dL (31-37) Red Cell Distribution Width 14.7 % (11.5-14.5) Platelet Count 155 x10^3/uL (140-400) Neutrophils (%) (Auto) 56 % (31-73) Lymphocytes (%) (Auto) 33 % (24-48) Monocytes (%) (Auto) 7 % (0-9) Eosinophils (%) (Auto) 2 % (0-3) Basophils (%) (Auto) 1 % (0-3) Neutrophils # (Auto) 1.9 x10^3/uL (1.8-7.7) Lymphocytes # (Auto) 1.2 x10^3/uL (1.0-4.8) Monocytes # (Auto) 0.3 x10^3/uL (0.0-1.1) Eosinophils # (Auto) 0.1 x10^3/uL (0.0-0.7) Basophils # (Auto) 0.0 x10^3/uL (0.0-0.2) Platelet Estimate Adequate (ADEQUATE) Large Platelets Few Sodium Level 139 mmol/L (136-145) Potassium Level 3.4 mmol/L (3.5-5.1) Chloride Level 103 mmol/L (98-107) Carbon Dioxide Level 28 mmol/L (21-32) Anion Gap 8 (6-14) Blood Urea Nitrogen 8 mg/dL (7-20) Creatinine 0.9 mg/dL (0.6-1.0) Estimated GFR (Cockcroft-Gault) 59.7 Glucose Level 96 mg/dL (70-99) Calcium Level 9.1 mg/dL (8.5-10.1) Physical Exam HEENT: Neck Supple W Full Motion Chest: Symmetric LUNGS: Clear to Auscultation Heart: irregularly irregular (AFIB ) Abdomen: Soft N/T Extremities: No Edema Neurology: alert, oriented, follow commands Assessment Assessment 1. Dyspnea with acute on chronic diastolic CHF; s/p IV Lasix. appears compensated 2. PAFIB presenting with RVR; Rate now controlled on Cardizem gtt 3. Mild troponin elevation; peak 0.059. Most probably type II, demand ischemia. Is CP free. 4. Hypertension; controlled 5. H/o cardiomyopathy; Echo 08/16 with LVEF 25%. MPI at that time did not show any evidence of ischemia. Echo 12/19 with LV recovery with EF 55% 6. Influenza B +; Tamiflu initiated Recommendations Continue metoprolol for rate control Eliquis for stroke prophylaxis Consider outpatient cardioversion and ischemic evaluation Supportive care Follow up in our office as arranged Justicifation of Admission Dx: Justifications for Admission: Justification of Admission Dx: Yes SAMIRA FLORES MD 01/09/21 1255: CARDIO Progress Notes Assessment Assessment Patient seen and examined 01/08/21. Agree with [employer]ER's assessment and plan. Continue diuresis for acute on chronic diastolic heart failure. PAF presenting with atrial fibrillation with RVR. Heart rate better controlled since admission. Continue metoprolol for rate control. Continue Eliquis for stroke prophylaxis and plan for outpatient cardioversion. Slight troponin elevation probably demand ischemia. Recent 2D echo showed normalized left ventricle systolic function with EF 55%. We will consider outpatient ischemic evaluation. BILLY STEVEN APRN Jan 08, 2021 15:06 SAMIRA FLORES MD Jan 09, 2021 12:55
--- NOTE | 2021-01-08 18:10 | NUR ---
Discharge Note: PARMINDER METZ6 [facility] Discharge instructions and discharge home medications reviewed with Patient and a copy given. All questions have been answered and understanding verbalized. The following instructions and handouts were given: INFLUENZA, A-FIB Discontinued lines and drains: Peripheral IV intact. Patient discharged to Home w/services withSpousevia Wheelchair
== END 2021-01-08 17:55 | disposition home health service (06) | DRG 308 ==
LOC: ER 06:14 → ED HOLD 07:20 → 6 SOUTH 14:35
PROVIDERS: ADMIT Internal Medicine; ATTEND Internal Medicine
DX: I48.0 Paroxysmal atrial fibrillation (principal); I50.33 Acute on chronic diastolic (congestive) heart failure; I24.8 Other forms of acute ischemic heart disease; J10.1 Influenza due to other identified influenza virus with other respiratory manifestations; I42.9 Cardiomyopathy, unspecified; I11.0 Hypertensive heart disease with heart failure; Z20.822 Contact with and (suspected) exposure to COVID-19; K21.9 Gastro-esophageal reflux disease without esophagitis
CPT/HCPCS: 36415; 71045; 80048; 80053; 83880; 84484; 85025; 87426; 87804; 93005; 94618; 96374; 96375; J1940; J3490; U0003; U0005; 99285-25; G0378

== ENCOUNTER 2021-01-16 21:14 | Inpatient (IN) | payer MEDICARE ==
[~2021-01-16] VITALS: Ht 157.5 cm; Wt 54.8 kg
[~2021-01-16 21:14] MED LIST changes: +ALPR0.254 PO; +OSEL30CA PO
--- NOTE | 2021-01-16 22:21 | PHYS DOC ---
Past Medical History Past Medical History: A-Fib Past Surgical History: Other Additional Past Surgical Histo: PER PT SHE HAD "ABDOMINAL SURGERY LONG TIME AGO" Smoking Status: Never Smoker Alcohol Use: None Drug Use: None General Adult EDM: Chief Complaint: SHORTNESS OF BREATH HPI: HPI: Patient is a 85 year old female with past medical history A. fib presents with a chief complaint of shortness of breath. Patient states shortness of breath has been ongoing on and off for approximately 1 week. Patient states prior to arrival she was getting ready for bed when shortness of breath suddenly started. On arrival patient was found to be in A. fib RVR with a heart rate in the 120s. Patient denied any palpitations or chest discomfort. Patient states she has been taking all her prescription medications as prescribed. Review of Systems: Review of Systems: Constitutional: Denies fever or chills. [] Eyes: Denies change in visual acuity. [] HENT: Denies nasal congestion or sore throat. [] Respiratory: Denies cough positive shortness of breath. [] Cardiovascular: Denies chest pain or edema. [] GI: Denies abdominal pain, nausea, vomiting, bloody stools or diarrhea. [] : Denies dysuria. [] Musculoskeletal: Denies back pain or joint pain. [] Integument: Denies rash. [] Neurologic: Denies headache, focal weakness or sensory changes. [] Endocrine: Denies polyuria or polydipsia. [] Lymphatic: Denies swollen glands. [] Psychiatric: Denies depression or anxiety. [] Heart Score: C/O Chest Pain: N/A Risk Factors: Risk Factors: DM, Current or recent (<one month) smoker, HTN, HLP, family history of CAD, obesity. Risk Scores: Score 0 - 3: 2.5% MACE over next 6 weeks - Discharge Home Score 4 - 6: 20.3% MACE over next 6 weeks - Admit for Clinical Observation Score 7 - 10: 72.7% MACE over next 6 weeks - Early Invasive Strategies Current Medications: Current Medications Medications (Trade) Dose Ordered Sig/Isac Start Time Stop Time Status Last Admin Dose Admin Diltiazem HCl (Cardizem Iv Push) 10 mg 1X ONCE 01/16/21 22:15 01/16/21 22:16 DC Diltiazem HCl 125 mg/Sodium Chloride 125 ml @ 5 mls/hr 1X ONCE 01/16/21 22:15 01/17/21 23:14 Allergies: Allergies: Allergies Coded Allergies Type Severity Reaction Last Updated Verified No Known Medication Allergies Allergy Unknown 03/02/15 Yes Physical Exam: PE: Constitutional: Well developed, well nourished, no acute distress, non-toxic appearance. [] HENT: Normocephalic, atraumatic, bilateral external ears normal, oropharynx moist, no oral exudates, nose normal. [] Eyes: PERRLA, EOMI, conjunctiva normal, no discharge. [] Neck: Normal range of motion, no tenderness, supple, no stridor. [] Cardiovascular:Heart rate regular rhythm, no murmur [] Lungs & Thorax: Bilateral breath sounds clear to auscultation [] Abdomen: Bowel sounds normal, soft, no tenderness, no masses, no pulsatile masses. [] Skin: Warm, dry, no erythema, no rash. [] Back: No tenderness, no CVA tenderness. [] Extremities: No tenderness, no cyanosis, no clubbing, ROM intact, no edema. [] Neurologic: Alert and oriented X 3, normal motor function, normal sensory function, no focal deficits noted. [] Psychologic: Affect normal, judgement normal, mood normal. [] Current Patient Data: Vital Signs: Vital Signs Date Time Temp Pulse Resp B/P (MAP) Pulse Ox O2 Delivery O2 Flow Rate FiO2 01/16/21 21:45 98.1 132 16 135/92 (105) 97 Room Air 98.1 EKG: EKG: [] Performed at 2203 Rate [address] fib RVR No ST elevation No ST depression No acute IA Radiology/Procedures: Radiology/Procedures: [] Impression: Single view chest dated 01/16/2021 10:27 PM: COMPARISON: 01/07/2021 Clinical Indication: Shortness of breath. Findings: Single upright portable exam of the chest was performed. Heart size mildly enlarged, stable. Soft tissue thickening of the right hilum, unchanged. Lungs are somewhat hyperinflated but otherwise clear. No consolidation or pleural effusion. No pneumothorax. IMPRESSION: No significant interval change compared 01/07/2021. Course & Med Decision Making: Course & Med Decision Making Pertinent Labs and Imaging studies reviewed. (See chart for details) Patient was evaluated for chief complaint. Work-up consisted of laboratory analysis radiologic imaging and EKG. Results reviewed and discussed with patient. Treatment included Cardizem 10 mg bolus followed by drip. Patient's initial heart rate was in the 120s and post treatment improved to 70s. Patient's troponin elevated at 0.069 which was same as previous. Patient admitted to her primary care physician with cardiology consult. [] Dragon Disclaimer: Dragon Disclaimer: This electronic medical record was generated, in whole or in part, using a voice recognition dictation system. Departure Departure Impression: Primary Impression: Atrial fibrillation with RVR Additional Impression: Dyspnea Disposition: ADMITTED INPATIENT Admitting Physician: Melecio Brar Referrals: MELECIO BRAR MD (PCP) JIHAN MALLORY DO Jan 16, 2021 22:21
[2021-01-16 22:25] LABS: BASO % 1 % (0-3); EOS # 0.1 x10^3/uL (0.0-0.7); EOS % 1 % (0-3); HEMATOCRIT 35.7 % (36.0-47.0); HEMOGLOBIN 11.7 g/dL (12.0-15.5); LYMPH # 1.4 x10^3/uL (1.0-4.8); LYMPH % 25 % (24-48); MEAN CORPUSCULAR HEMOGLOBIN 31 pg (25-35); MEAN CORPUSCULAR HGB CONC 33 g/dL (31-37); MEAN CORPUSCULAR VOLUME 93 fL (79-100); MONO # 0.4 x10^3/uL (0.0-1.1); MONO % 7 % (0-9); NEUT # 3.5 x10^3/uL (1.8-7.7); NEUT % 66 % (31-73); PLATELET COUNT 182 x10^3/uL (140-400); RED BLOOD COUNT 3.82 x10^6/uL (3.50-5.40); RED CELL DISTRIBUTION WIDTH 14.5 % (11.5-14.5); WHITE BLOOD COUNT 5.3 x10^3/uL (4.0-11.0)
--- NOTE | 2021-01-16 22:33 | RAD ---
Single view chest dated 01/16/2021 10:27 PM: COMPARISON: 01/07/2021 Clinical Indication: Shortness of breath. Findings: Single upright portable exam of the chest was performed. Heart size mildly enlarged, stable. Soft tis adonis thickening of the right hilum, unchanged. Lungs are somewhat hyperinflated but otherwise clear. N o consolidation or pleural effusion. No pneumothorax. IMPRESSION: No significant interval change compared 01/07/2021. Electronically signed by: Cornelius Ashby MD (01/16/2021 10:30 PM) MARILYNN
[2021-01-16 23:08] LABS: CALCIUM 9.6 mg/dL (8.5-10.1); CREATININE 1.1 mg/dL (0.6-1.0); GFR 47.3; POTASSIUM 4.1 mmol/L (3.5-5.1)
[2021-01-16 23:13] LABS: ALBUMIN 3.6 g/dL (3.4-5.0); ALBUMIN/GLOBULIN RATIO 0.9 (1.0-1.7); TOTAL BILIRUBIN 0.5 mg/dL (0.2-1.0); TOTAL PROTEIN 7.4 g/dL (6.4-8.2)
[2021-01-17] MEDS ORDERED: HYDROcodone/APAP 5/325MG 1 TAB TABLET PO ONE
[2021-01-17] MEDS: HYDROcodone/APAP 5/325MG 1 TAB TABLET PO PRN ×2 (02:42→13:47)
--- NOTE | 2021-01-17 06:44 | EKG ---
[facility] [address] [place] [address] Test Date: 2021-01-17 Test Time: 00:23:46 Pat Name: PARMINDER METZ Department: Room: Gender: F Electrical [employer] Person: : [id number] Requested By: JIHAN MALLORY Order Number: [id number] Reading MD: Measurements Intervals Kendrick Rate: 91 P: AL: QRS: -31 QRSD: 132 T: -61 QT: 406 QTc: 501 Interpretive Statements IRREGULAR RHYTHM, NO P-WAVE FOUND ABNORMAL LEFT AXIS DEVIATION LEFT ANTERIOR FASCICULAR BLOCK RIGHT BUNDLE BRANCH BLOCK BIFASCICULAR BLOCK RVH WITH REPOLARIZATION ABNORMALITY ABNORMAL ECG RI6.01 Compared to ECG 01/16/2021 22:03:18 Left anterior fascicular block now present Bifascicular block now present
[2021-01-17] MEDS ORDERED: ALPRAZolam 0.25 MG TABLET PO PRN (07:45)
[2021-01-17 08:00] VITALS: BP 144/101
--- NOTE | 2021-01-17 08:55 | PDOC ---
Provider Note Date of Service: DATE: 01/17/21 TIME: 08:55 Provider Note Pt seen.H&P dictated.#[id number] Justifications for Admission Other Justification MELECIO HINKLE MD Jan 17, 2021 08:55
--- NOTE | 2021-01-17 09:28 | HP ---
ADMIT DATE: 01/17/2021 MEDICAL HISTORY AND PHYSICAL REASON FOR ADMISSION TO THE HOSPITAL: AFib with RVR and shortness of breath. HISTORY OF PRESENT ILLNESS: The patient is an 85-year-old female with multiple admissions for this patient's, AFib with RVR. Last visit, she was admitted for influenza. Before that, she was admitted for abdominal pain. Both the times, she had AFib with RVR and she was taking Eliquis as well as beta omer and in spite of that, heart rate was 130. The patient was given Cardizem IV and started on a drip, admitted to the cardiac floor. PAST MEDICAL HISTORY: As mentioned, the patient was in the hospital and was discharged on 01/08 and the patient was also discharged on 12/30. Previous medical history; gallbladder distended, no stones, AFib, hypertension, CHF, GERD. PAST SURGICAL HISTORY: None. FAMILY HISTORY: None. SOCIAL HISTORY: Denies smoking or alcohol. ALLERGIES: None. MEDICATIONS: She is on metoprolol 75 mg twice a day, Eliquis 2.5 twice a day, pantoprazole 40 mg daily. The patient had echocardiogram which showed ejection fraction 55%. Left atrium is severely dilated and she also had a transesophageal echocardiogram last year, 2019, which showed ejection fraction 30% last year. PHYSICAL EXAMINATION: GENERAL: The patient is not in any distress. VITAL SIGNS: She has a temperature of 98, pulse 132, respirations 16, blood pressure 135/92, 97 on room air. HEENT: Head is atraumatic. Pupils equal. Oral cavity, no congestion. NECK: Supple. Thyroid not enlarged. JVD not elevated. CHEST: Symmetrical. CARDIOVASCULAR: S1, S2 irregular. ABDOMEN: Soft. Bowel sounds present. No mass palpable. EXTERNAL GENITALIA: No [place]. RECTAL: Exam deferred. EXTREMITIES: No calf tenderness. No edema. NEUROLOGIC: No focal deficits. Moving all extremities. LABORATORY DATA: Shows a white count of 5, hemoglobin 11, platelets 182. Electrolytes show sodium 134, potassium 4.1, chloride 100, bicarbonate 22, BUN 11, creatinine 1.1. LFTs normal. Troponin 0.069. BNP 11,500. Chest x-ray shows no change. FINAL IMPRESSION: 1. Chronic atrial fibrillation with rapid ventricular response. 2. Systolic heart failure, improved, back to 50% ejection fraction on last echo. 3. History of anxiety. 4. Gallbladder symptoms, but she has a negative gallbladder sonogram, negative PIPIDA scan. PLAN: At this time, the patient was admitted to the hospital, was given Cardizem drip to control the heart rate. Cardiology is consulted. May refer to EP for further definitive treatment for atrial fibrillation with RVR.Eliquis for anticoagulation. LUCILLE DR: Salvador TID: [id number] MTDD
[2021-01-17 11:00] VITALS: BP 136/72
--- NOTE | 2021-01-17 11:41 | PDOC ---
NINFA MCKNIGHT BI ARCHITECT 01/17/21 1141: CARDIO Progress Notes Date and Time Date of Service 01/17/2021 Time of Evaluation 1120 Subjective Subjective: No Chest Pain, No shortness of breath, No Palpitations Vitals Vitals Vital Signs Date Time Temp Pulse Resp B/P (MAP) Pulse Ox O2 Delivery O2 Flow Rate FiO2 01/17/21 08:00 97.9 106 18 144/101 (115) 97 Room Air 97.9 Weight Weight [ ] Laboratory Labs Laboratory Tests Test 01/16/21 22:15 01/16/21 23:00 White Blood Count 5.3 x10^3/uL (4.0-11.0) Red Blood Count 3.82 x10^6/uL (3.50-5.40) Hemoglobin 11.7 g/dL (12.0-15.5) Hematocrit 35.7 % (36.0-47.0) Mean Corpuscular Volume 93 fL (79-100) Mean Corpuscular Hemoglobin 31 pg (25-35) Mean Corpuscular Hemoglobin Concent 33 g/dL (31-37) Red Cell Distribution Width 14.5 % (11.5-14.5) Platelet Count 182 x10^3/uL (140-400) Neutrophils (%) (Auto) 66 % (31-73) Lymphocytes (%) (Auto) 25 % (24-48) Monocytes (%) (Auto) 7 % (0-9) Eosinophils (%) (Auto) 1 % (0-3) Basophils (%) (Auto) 1 % (0-3) Neutrophils # (Auto) 3.5 x10^3/uL (1.8-7.7) Lymphocytes # (Auto) 1.4 x10^3/uL (1.0-4.8) Monocytes # (Auto) 0.4 x10^3/uL (0.0-1.1) Eosinophils # (Auto) 0.1 x10^3/uL (0.0-0.7) Basophils # (Auto) 0.0 x10^3/uL (0.0-0.2) Sodium Level 134 mmol/L (136-145) Potassium Level 4.1 mmol/L (3.5-5.1) Chloride Level 100 mmol/L (98-107) Carbon Dioxide Level 22 mmol/L (21-32) Anion Gap 12 (6-14) Blood Urea Nitrogen 11 mg/dL (7-20) Creatinine 1.1 mg/dL (0.6-1.0) Estimated GFR (Cockcroft-Gault) 47.3 BUN/Creatinine Ratio 10 (6-20) Glucose Level 113 mg/dL (70-99) Calcium Level 9.6 mg/dL (8.5-10.1) Total Bilirubin 0.5 mg/dL (0.2-1.0) Aspartate Amino Transf (AST/SGOT) 25 U/L (15-37) Alanine Aminotransferase (ALT/SGPT) 17 U/L (14-59) Alkaline Phosphatase 79 U/L (46-116) Troponin I Quantitative 0.069 ng/mL (0.000-0.055) NP-Alw-X-Type Natriuretic Peptide 54598 pg/mL (0-449) Total Protein 7.4 g/dL (6.4-8.2) Albumin 3.6 g/dL (3.4-5.0) Albumin/Globulin Ratio 0.9 (1.0-1.7) Physical Exam HEENT: Neck Supple W Full Motion Chest: Symmetric LUNGS: Other (diminished bases) Heart: irregularly irregular (AFIB RVR) Abdomen: Soft N/T Extremities: No Edema, No Calf Tenderness Neurology: alert, oriented, follow commands Assessment Assessment HPI: This is a pleasant 85 yo female admitted for complains of SOA that occurred last night. Denies any nausea or vomiting. She just did not feel good last night and was having some chest discomfort. She was treated for flu a week ago and has not been vaccinated for covid-19. Upon admission she was noted with AFIB RVR and cardizem was started in ED. Presently no CP and no SOA. She was recently treated over a week ago for AFIB RVR. 1. Persistent AFIB with RVR 2. Chronic diastolic CHF: 3. Mild troponin elevation; peak 0.069. Most probably type II, demand ischemia with associated RVR 4. Hypertension; controlled 5. H/o cardiomyopathy; Echo 08/16 with LVEF 25%. MPI at that time did not show any evidence of ischemia. Echo 12/19 with LV recovery with EF 55% 6. Recently treated FLU 7. PUI Recommendations 1. DC cardizem. Dig IV x1. Restart home metoprolol. 2. Eliquis for stroke prophylaxis 3. Would consider inpt CVN but further review noted of her at times treatment noncompliance worried about med cost. She already had JEAN MARIE/CVN in 09/2020 and has reverted back to AFIB. She was on amiodarone in the past but apparently she st opped this as well and it is unclear if she converted back in AFIB while on amiodarone and is truly a failed therapy or reverted back to AFIB due to failure to continue amiodarone. Nevertheless. her risk for AFIB recurrence is high given her poor adherence and also notably severely dilated left atrium. Would consider rate control for now with metoprolol and low dose digoxin. Justicifation of Admission Dx: Justifications for Admission: Justification of Admission Dx: Yes SAMIRA FLORES MD 01/18/21 1005: CARDIO Progress Notes Assessment Assessment Patient seen and examined 01/17/21. Agree with GEOTHERMAL OPERATIONS ENGINEER's assessment and plan. Atrial fib with RVR rate better controlled since admission Recurrent AF probably from non compliance with meds She has had JEAN MARIE cardioversion in the past She would not benefit from repeat cardioversion if non compliant with anti arrhythmic Plan for rate control, anticoagulation with eliquis and consider outpatient EP referral for ablation Slight trop elevation demand ischemia. Thank you for your consultatiobn NINFA MCKNIGHT APRN Jan 17, 2021 11:41 SAMIRA FLORES MD Jan 18, 2021 10:05
[2021-01-17] MEDS ORDERED: DIGOXIN IV 500 MCG/2 ML AMPUL. IV ONE (11:45)
[2021-01-17] MEDS ORDERED: 0.9 % SODIUM CHLORIDE 10 ML DISP.SYRIN. IV PRN (11:45)
[2021-01-17] MEDS: METOPROLOL TART IMMED RELEASE 25 MG TABLET. PO SCH (13:27)
[2021-01-17] MEDS: APIXABAN 2.5 MG TABLET. PO SCH (13:27)
[2021-01-17] MEDS: PANTOPRAZOLE 40 MG TABLET.DR. PO SCH (13:27)
[2021-01-17 15:00] VITALS: BP 126/70
[2021-01-17] MEDS ORDERED: ONDANSETRON PF 4 MG/2 ML VIAL. IVP PRN (17:30)
[2021-01-17 19:59] VITALS: BP 137/86
[2021-01-17 22:11] VITALS: BP 125/69
[2021-01-17] MEDS ORDERED: DIGO125T3 PO (22:55)
--- NOTE | 2021-01-17 22:56 | SNU/HH DC ---
DISCHARGE WITH HOME HEALTH DISCHARGE INFORMATION: Discharge Date: Jan 18, 2021 Condition on Discharge: Stable CODE STATUS: Code Status: Full HOME HEALTH: Face to Face: I certify this patient is under my care and that I, or a nurse practitioner or jean-paul gudino's assistant secretary working with me, had a face to face encounter that meets the physician face to face encounter requirements with this patient on []. Medical Complications: CHF, Other (a fib) RN For Eval/Treatment: Yes Physical Therapy For: Evalulation/Treatment Home Health Aide For: Self-care BARREL ROLLER OPERATOR For: Community Resources Pt Meets Homebound Status: Unsteady balance w/ amb, POST DISCHARGE ORDERS: Activity Instructions for Disc: Activity as tolerated Weight Bearing Status after Di: As tolerated Bathing Instructions: No Tub Bath until see DIET AFTER DISCHARGE: Low Sodium 2 gm Wound/Incision Care: May get incision wet CHECKS AFTER DISCHARGE: Checks after discharge: Check blood press - daily TREATMENT/EQUIPMENT ORDERS: Adaptive Equipment Issued: None CERTIFICATION STATEMENT: Certification Statement: Certification Statement: Based on the above finding, I certify that this patient is confined to the home and needs intermittent retirement care, physical therapy and/or speech therapy, or continues to need occupational therapy.~ This patient is under my care, and I have initiated the establishment of the plan of care.~ This patient will be followed by myself or a community physician who will periodically review the plan of care. Home Meds Active Scripts Digoxin (DIGOXIN) 125 Mcg Tablet, 125 MCG PO DAILY for a fib for 30 Days, #30 TAB Prov:MELECIO HINKLE MD 01/17/21 Metoprolol Tartrate (METOPROLOL TARTRATE) 50 Mg Tablet, 75 MG PO BID for FOR HYPERTENSION for 30 Days, #90 TAB 3 Refills Prov:NINFA MCKNIGHT APPLE PICKING SUPERVISOR 12/25/20 Pantoprazole Sodium (PROTONIX ) 40 Mg Tablet.dr 40 MG PO DAILYAC for GERD for 30 Days, #30 TAB 5 Refills Prov:ÁNGELA WHITLOCK MD 12/05/20 Reported Medications Alprazolam (ALPRAZOLAM) 0.25 Mg Tablet, 0.25 MG PO BID PRN for ANXIETY / AGITATION, TAB 0 Refills 01/07/21 Apixaban (ELIQUIS) 2.5 Mg Tablet, 2.5 MG PO BID for afib, TAB 10/16/19 Discontinued Scripts Oseltamivir Phosphate (TAMIFLU) 30 Mg Capsule, 30 MG PO BID for flu for 3 Days, #6 CAP Prov:MELECIO HINKLE MD 01/08/21 MELECIO HINKLE MD Jan 17, 2021 22:56
[2021-01-18] MEDS: APIXABAN 2.5 MG TABLET. PO SCH ×2 (00:25→10:53)
[2021-01-18] MEDS: METOPROLOL TART IMMED RELEASE 25 MG TABLET. PO SCH ×2 (00:26→10:52)
[2021-01-18 03:59] VITALS: BP 142/83
[2021-01-18] MEDS ORDERED: IV RINGERS,LACTATED 1000ML 1,000 ML IV SCH (06:00)
[2021-01-18] MEDS ORDERED: PROCHLORPERAZINE 10 MG/2 ML VIAL. IVP PRN (06:00)
[2021-01-18 06:50] VITALS: BP 150/88
[2021-01-18] MEDS ORDERED: DIGOXIN 125 MCG TABLET. PO SCH (09:00)
--- NOTE | 2021-01-18 09:22 | PDOC ---
PROGRESS NOTES Date of Service: DATE: 01/18/21 TIME: 09:22 Subjective Subjective feels good ,donot want cardioversion Objective Objective Vital Signs Date Time Temp Pulse Resp B/P (MAP) Pulse Ox O2 Delivery O2 Flow Rate FiO2 01/18/21 06:50 98.4 82 16 150/88 (108) 96 Room Air 98.4 Intake and Output 01/18/21 07:00 Output Total 1975 ml Balance -1975 ml Output Urine Total 1975 ml Physical Exam Abdomen: Normal bowel sounds, Soft Heart: Normal S1, Normal S2, Other (irregular) Extremities: No clubbing General: Alert HEENT: Atraumatic Lungs: Clear to auscultation MUSCULOSKELETAL: No deformity, No muscular tenderness noted, Osteoarthritic changes both hands Neuro: Normal gait Psych/Mental Status: Mental status NL Skin: No breakdown Assessment Assessment FINAL IMPRESSION: 1. Chronic atrial fibrillation with rapid ventricular response. 2. Systolic heart failure, improved, back to 50% ejection fraction on last echo. 3. History of anxiety. 4. Gallbladder symptoms, but she has a negative gallbladder sonogram, negative PIPIDA scan. PLAN: rate is controlled after addition digoxinto metoprolol. pt donot want cardioversion ,had it once 3 months ago,did not help. labs good d/c home today. At this time, the patient was admitted to the hospital, was given Cardizem drip to control the heart rate. Cardiology is consulted. May refer to EP for further definitive treatment for atrial fibrillation with RVR.Eliquis for anticoagulation. Comment Review of Relevant I have reviewed the following items gal (where applicable) has been applied. Labs Laboratory Tests Test 01/17/21 13:35 SARS-CoV-2 Antigen (Rapid) Negative (NEGATIVE) Medications Current Medications Digoxin (Lanoxin) 125 mcg DAILY PO ; Start 01/18/21 at 09:00 Digoxin (Lanoxin) 500 mcg 1X ONCE IV Last administered on 01/17/21at 13:28; Start 01/17/21 at 11:45; Stop 01/17/21 at 11:46; Status DC Ondansetron HCl (Zofran) 4 mg PRN Q6HRS PRN IVP NAUSEA/VOMITING Last administered on 01/17/21at 17:35; Start 01/17/21 at 17:30 Prochlorperazine Edisylate (Compazine) 5 mg PACU PRN PRN IVP NAUSEA, MRX1; Start 01/18/21 at 06:00; Stop 01/19/21 at 05:59 Ringer's Solution 1,000 ml @ 30 mls/hr Q24H IV ; Start 01/18/21 at 06:00; Stop 01/18/21 at 17:59 Sodium Chloride (Normal Saline Flush) 10 ml QSHIFT PRN IV AFTER MEDS AND BLOOD DRAWS; Start 01/17/21 at 11:45 Vitals/I & O Vital Sign - Last 24 Hours 01/17/21 01/17/21 01/17/21 01/17/21 11:00 13:27 13:28 13:47 Temp 97.5 97.5 Pulse 83 83 83 Resp 18 B/P (MAP) 136/72 (93) 136/72 136/72 Pulse Ox 96 96 O2 Delivery Room Air 01/17/21 01/17/21 01/17/21 01/17/21 15:00 15:34 19:59 20:00 Temp 97.5 97.9 97.5 97.9 Pulse 63 86 Resp 18 16 B/P (MAP) 126/70 (88) 137/86 (103) Pulse Ox 97 96 96 O2 Delivery Room Air Room Air Room Air 01/17/21 01/18/21 01/18/21 01/18/21 22:11 00:26 03:59 06:50 Temp 97.6 97.9 98.4 97.6 97.9 98.4 Pulse 77 77 73 82 Resp 16 16 16 B/P (MAP) 125/69 (87) 125/69 142/83 (102) 150/88 (108) Pulse Ox 95 98 96 O2 Delivery Room Air Room Air Room Air Intake and Output 01/17/21 01/17/21 01/18/21 15:00 23:00 07:00 Output Total 1150 ml 825 ml Balance -1150 ml -825 ml Justifications for Admission Other Justification MELECIO HINKLE MD Jan 18, 2021 09:22
--- NOTE | 2021-01-18 10:05 | PDOC ---
CARDIO Progress Notes Date and Time Date of Service 01/18/2021 Time of Evaluation 0950 Subjective Subjective: No Chest Pain, No shortness of breath, No Palpitations Vitals Vitals Vital Signs Date Time Temp Pulse Resp B/P (MAP) Pulse Ox O2 Delivery O2 Flow Rate FiO2 01/18/21 06:50 98.4 82 16 150/88 (108) 96 Room Air 98.4 Weight Weight [ ] Input and Output Intake and Output Intake and Output 01/18/21 07:00 Output Total 1975 ml Balance -1975 ml Output Urine Total 1975 ml Laboratory Labs Laboratory Tests Test 01/17/21 13:35 SARS-CoV-2 RNA (ROMINA) Negative (Negative) SARS-CoV-2 Antigen (Rapid) Negative (NEGATIVE) Physical Exam HEENT: Neck Supple W Full Motion Chest: Symmetric LUNGS: Other (diminished bases) Heart: irregularly irregular (AFIB RVR) Abdomen: Soft N/T Extremities: No Edema, No Calf Tenderness Neurology: alert, oriented, follow commands Assessment Assessment 1. Persistent AFIB with RVR : now rate controlled after diogoxin 2. Chronic diastolic CHF: compensated 3. Mild troponin elevation; peak 0.069. Most probably type II, demand ischemia with associated RVR 4. Hypertension; controlled 5. H/o cardiomyopathy; Echo 08/16 with LVEF 25%. MPI at that time did not show any evidence of ischemia. Echo 12/19 with LV recovery with EF 55% 6. Recently treated FLU 7. PUI Recommendations 1. Continue metoprolol and digoxin for rate control 2. Eliquis for stroke prophylaxis 3. Would consider inpt CVN but further review noted of her at times treatment noncompliance worried about med cost. She already had JEAN MARIE/CVN in 09/2020 and has reverted back to AFIB. She was on amiodarone in the past but apparently she stopped this as well and it is unclear if she converted back in AFIB while on amiodarone and is truly a failed therapy or reverted back to AFIB due to failure to continue amiodarone. Nevertheless. her risk for AFIB recurrence is high given her poor adherence and also notably severely dilated left atrium. Continue rate control and will refer to EP 4. Follow up with Dr. Duron on Feb 20 at 9:30 Justicifation of Admission Dx: Justifications for Admission: Justification of Admission Dx: Yes NINFA MCKNIGHT SURGICAL ORDERLY Jan 18, 2021 10:05
[2021-01-18] MEDS: PANTOPRAZOLE 40 MG TABLET.DR. PO SCH (10:53)
[2021-01-18 11:00] VITALS: BP 156/92
--- NOTE | 2021-01-18 13:09 | NUR ---
SS following for discharge planning. SS reviewed pt chart and discussed with pt RN. Pt is from home with significant other and is currently on room air. Cardiology following. COVID19 negative. Pt was currently on services with [facility], ; fax [phone]. Discharge orders received for home with home healthcare. Discharge orders phoned and faxed to [facility]. Pt's RN notified.
[2021-01-18] MEDS ORDERED: ACETAMINOPHEN 325 MG TABLET. PO PRN (13:15)
--- NOTE | 2021-01-18 17:21 | NUR ---
Discharge Note: PARMINDER METZ [facility] Discharge instructions and discharge home medications reviewed with Patient and a copy given. All questions have been answered and understanding verbalized. Pt given throughough education regarding atrial fibrillation and the added medication treatment. Pt educated on compliance and assistance programs given to her from social work last admission. Pt verbalized understanding. Pt prescription sent to pharmacy from physician. Patient has follow up with cardiology scheduled. Pt stable at time of DC.
== END 2021-01-18 14:35 | disposition home health service (06) | DRG 309 ==
LOC: ER 21:14 → ED HOLD 22:48 → 2 SOUTH 01-17 07:00 → 6 SOUTH 01-17 07:30
PROVIDERS: ADMIT Internal Medicine; ATTEND Internal Medicine
DX: I48.19 Other persistent atrial fibrillation (principal); I24.8 Other forms of acute ischemic heart disease; I50.42 Chronic combined systolic (congestive) and diastolic (congestive) heart failure; I42.9 Cardiomyopathy, unspecified; I11.0 Hypertensive heart disease with heart failure; J11.1 Influenza due to unidentified influenza virus with other respiratory manifestations; Z91.14 Patient's other noncompliance with medication regimen; F41.9 Anxiety disorder, unspecified; Z20.822 Contact with and (suspected) exposure to COVID-19; K21.9 Gastro-esophageal reflux disease without esophagitis; Z91.19 Patient's noncompliance with other medical treatment and regimen
CPT/HCPCS: 36415; 71045; 80053; 83880; 84484; 85025; 87426; 93005; 96365; 96375; J1160; J2405; J3490; U0003; U0005; 99285-25